=== PATIENT | female | born 1965 | race Two or more races ===

== ENCOUNTER 2019-09-03 07:55 | Day surgery (SDC) | payer BC ==
[2019-09-03 08:25] LABS: BASO % 0.9 % (0-2.0); EOS % 5.7 % (0-4.5); HEMATOCRIT 40.6 % (32.4-45.2); HEMOGLOBIN 13.6 GM/dL (10.7-15.3); LYMPH % 25.8 % (8-40); MCH 27.9 pg (25.7-33.7); MCHC 33.4 g/dl (32.0-36.0); MEAN CELL VOLUME 83.6 fl (80-96); MEAN PLT VOLUME 9.2 fl (7.5-11.1); NEUT % 59.6 % (42.8-82.8); PLATELET COUNT 171 K/MM3 (134-434); RBC 4.85 M/mm3 (3.60-5.2); RDW 14.3 % (11.6-15.6); WHITE BLOOD COUNT 6.2 K/mm3 (4.0-10.0)
[2019-09-03 08:39] LABS: INR 1.28 (0.83-1.09); PROTHROMBIN TIME (PATIENT) 15.2 SEC (9.7-13.0)
[2019-09-03 09:37] VITALS: BMI 43.7
[2019-09-03 14:15] VITALS: TEMP 98.5
[2019-09-03] MEDS ORDERED: ONDANSETRON 4 MG/2 ML VIAL IVPUSH ONE (15:34)
[2019-09-03 16:49] VITALS: BP 123/65; PULSE 74
--- NOTE | 2019-09-09 15:30 | PATH ---
Surgical Pathology Report Patient Name: NEVA SWENSON [facility]. Rec. #: [id number] /Age/Gender: 1965 (Age: 53) / F Account: [id number] Location: RADIOLOGY INTER Taken: 09/03/2019 Received: 09/03/2019 Reported: 09/09/2019 Physicians: Cole Ballard M.D. Specimen(s) Received LIVER CORE BIOPSY Clinical History Preop dx: h/o sarcoidosis and elevated LFT's, negative viral hepatitis A, B and C serologies, negative ADIEL, mitocho/Sm Musc. 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 MODERATE STEATOHEPATITIS WITH DIFFUSE STEATOSIS(70%), PERICELLULAR INFLAMMATION, AND FOCAL BALLOONING DEGENERATION OF HEPATOCYTES. IRON STAIN IS NEGATIVE FOR SIDEROSIS. PAS WITH DIASTASE STAIN IS NEGATIVE FOR [id number] GLOBULES. NEGATIVE FOR CHOLESTASIS, CHOLANGITIS/BILE DUCT INJURY, GRANULOMAS, OR MALIGNANCY. SEE COMMENT. Comment: The biopsy contains 18 portal tracts for evaluation and shows cirrhosis. The total SINYD score is 6/8 (steatosis:3/3, lobular inflammation: 2/3, hepatocyte balloonin/2). The SINDY fibrosis stage is 4/4. The patient is noted to have an elevated "mitochon/sm musc Ab titer". There is no evidence of autoimmune hepatitis or primary biliary cholangitis (PBC) in this sample. The alatna bile ducts are unremarkable. The cirrhosis is most likely due to steatohepatitis, however, a "burned out" immune-mediated process cannot be histologically excluded. The M2 subunit of anti-mitochondrial antibody is most specific for a diagnosis of PBC. Further testing for this may be helpful if a diagnosis of PBC is suspected. Furthermore, elevated autoantibodies have been reported in patients with fatty liver disease without autoimmune hepatitis. Shaina et al. Clinical Significance Of Serum Autoantibodies In Patients With NAFLD: Results From The Nonalcoholic Steatohepatitis Clinical Research Network(MARTINEZ CRN). Hepatol int. 2011; 6(1): 379-385. Tonya et al. Prevalence and Significance of Autoantibodies in Patients with Alcoholic Liver Disease. J Dig Dis. 2013 Trevon;14(7):396-401. Clinical and laboratory correlation recommended. This case was sent to Dr. Payal Palomino, GI and liver specialist, from [facility] [place], [place], the diagnosis above reflects her opinion ([id number]). Electronically Signed Madhavi Holguin M.D. Gross Description Received in formalin labeled "liver biopsy," are 3 estrada, cylindrical portions of soft tissue ranging from 1.4-1.8 cm in length and averaging 0.1 cm in diameter. The specimens are submitted in toto in one cassette. 09/03/2019 [facility]09/03/2019
== END 2019-09-03 16:30 | disposition home or self-care (01) ==
LOC: JRADIR 07:55
PROVIDERS: ATTEND Internal Medicine Gastroenterology
PROC: 0FB03ZX Excision of Liver, Percutaneous Approach, Diagnostic (ICD-10-PCS; principal; 2019-09-03)
DX: K75.81 Nonalcoholic steatohepatitis (NASH) (principal); K74.69 Other cirrhosis of liver
CPT/HCPCS: 36415; 76942-TC; 85025; 85610; 87899; 88305-TC; 88313-TC

== ENCOUNTER 2019-09-18 10:29 | Day surgery (SDC) | payer BC ==
[2019-09-17 08:03] VITALS: BMI 42.7
[2019-09-18] MEDS ORDERED: LIDOCAINE HCL 1%, 10 MG/ML (20ML VIAL) ONE (13:46)
[2019-09-18] MEDS ORDERED: LIDOCAINE 1%-EPI 1:100,000 30 ML MDV IJ ONE (13:46)
--- NOTE | 2019-09-18 13:52 | HP ---
History & Physical Update - History History: No Change (H & P done on 09/04/2019 with progress note on 09/11/2019) - Physical Physical: No Change - Assessment Assessment: No Change - Plan Plan: No Change
[2019-09-18] MEDS ORDERED: LIDOCAINE HCL/PF 2% SDV 5ML VIAL ONE (14:05)
[2019-09-18] MEDS ORDERED: PROPOFOL 20 ML ONE ×2 (14:06)
[2019-09-18] MEDS ORDERED: MIDAZOLAM HCL 2 MG/2 ML SINGLE DOSE VIAL ONE (14:06)
[2019-09-18] MEDS ORDERED: ceFAZolin SODIUM 1 GM VIAL ONE (14:27)
[2019-09-18] MEDS ORDERED: LIDOCAINE 1%/EPI 1:100000 (50 ML MULTI DOSE VIAL) NR ONE (14:35)
[2019-09-18] MEDS ORDERED: DEXAMETHASONE SOD PHOSPHATE 4 MG/1 ML VIAL ONE (14:38)
[2019-09-18] MEDS ORDERED: KETOROLAC TROMETHAMINE 30 MG/1 ML VIAL ONE (14:47)
--- NOTE | 2019-09-18 15:26 | OP ---
Operative Note - Note: Operative Date: 09/18/19 Pre-Operative Diagnosis: Stage 4 hemorrhoids Operation: EUA, stapled hemorrhoidectomy with PPH 3 Findings: PROLAPSED INTERNAL AND EXTERNAL HEMORRHOIDS Post-Operative Diagnosis: Same as Pre-op Surgeon: Juan A Davenport Anesthesia: General Specimens Removed: ANORECTAL TISSUE Estimated Blood Loss (mls): 15 Operative Report Dictated: Yes
[2019-09-18] MEDS ORDERED: ACETAMINOPHEN 500 MG TABLET (FP) PO PRN (15:29)
[2019-09-18] MEDS ORDERED: ONDANSETRON 4 MG/2 ML VIAL IVPUSH PRN (15:29)
[2019-09-18] MEDS ORDERED: oxyCODONE HCL 5 MG TABLET PO PRN (15:29)
[2019-09-18] MEDS ORDERED: LACTATED RINGERS SOLUTION 1,000 ML IV SCH (15:30)
[2019-09-18] MEDS ORDERED: ACETAMINOPHEN INJECTION 100 ML IVPB ONE (15:33)
[2019-09-18] MEDS ORDERED: ACETAMINOPHEN 1000 MG/100 ML VIAL (NON FORMULARY) IVPB ONE ×2 (15:37→18:16)
[2019-09-18] MEDS ORDERED: HYDROmorphone HCl 2 MG/ML VIAL IVPUSH PRN (16:53)
[2019-09-18] MEDS ORDERED: HYDROmorphone HCl 2 MG/ML VIAL ONE (17:28)
[2019-09-18] MEDS ORDERED: HYDROmorphone HCl 2 MG/ML VIAL IVPUSH ONE (17:43)
[2019-09-18 19:18] VITALS: TEMP 97.6
[2019-09-18 20:28] VITALS: BP 110/60; PULSE 80
--- NOTE | 2019-09-19 06:32 | OP ---
DATE OF OPERATION: 09/18/2019 PROCEDURE: Examination under anesthesia, stapled hemorrhoidectomy. PREOPERATIVE DIAGNOSIS: Stage 4 hemorrhoids. POSTOPERATIVE DIAGNOSIS: Stage 4 hemorrhoids. SURGEON: Juan A Davenport MD ANESTHESIA: General by laryngeal mask airway. FINDINGS AND PROCEDURE: This is a 53-year-old female who presented with acute prolapse of stage 4 hemorrhoids 3 weeks prior for which initial conservative treatment with sitz baths, analgesics, fiber laxatives, and lidocaine ointment was done. The edematous, prolapsed hemorrhoids eventually resolved; however, the prolapsed hemorrhoids persisted, so patient is advised hemorrhoidectomy, and consent was obtained after discussing the risks, benefits, and alternatives to the procedure. Patient was brought to the operating room and placed in supine position. General anesthesia by laryngeal mask airway was administered. Patient was then placed in lithotomy position. The perineum was prepped and draped in the usual sterile fashion. Using lidocaine 1% with epinephrine, perianal anesthesia was administered. The anal canal was then carefully inspected using the Linus anal retractor. No other abnormal lesion was found other than the prolapsed, 3-column hemorrhoids. Anal dilator was initially inserted and followed by insertion of the anoscope. The anoscope was anchored to the perineal skin with silk 0 sutures. Afterwards, the rotating anoscope was inserted, and a pursestring suture about 1 cm above the dentate line was applied using Prolene 2-0. After this, the anvil of the PPH3 was inserted beyond the pursestring, and the pursestring was tied. The PPH3 was then closed and fired and held for about 30 seconds for hemostasis. Afterwards, the PPH3 was opened and extracted from the anal canal. A 1.5-cm ring of anorectal tissue was harvested. The posterior vagina was also inspected and was noted to be intact. The staple line was inspected and noted to have just small oozing. A piece of Surgicel was inserted in the canal to reinforce the hemostasis. The anoscope was removed, and the perineum was covered with pressure dressing. Patient was successfully extubated and transferred to the post anesthesia care unit in satisfactory condition. Estimated blood loss was about 15 mL. Wound class, dirty. Patient received a gram of Ancef prior to the start of the procedure. JUAN A DAVENPORT M.D. [id number]
--- NOTE | 2019-09-23 19:35 | PATH ---
Surgical Pathology Report Patient Name: NEVA SWENSON Med. Rec. #: [id number] /Age/Gender: 1965 (Age: 53) / F Account: [id number] Location: [facility] SURGICAL Taken: 09/18/2019 Received: 09/21/2019 Reported: 09/23/2019 Physicians: uJan A Davenport M.D. Specimen(s) Received HEMORRHOIDS Clinical History Hemorrhoids Final Diagnosis HEMORRHOID, EXCISION: PORTION OF ANORECTAL JUNCTIONAL MUCOSA WITH HEMORRHOIDS. Electronically Signed Callie Perez M.D. Gross Description Received in formalin labeled "hemorrhoids," is a 4.5 x 2.0 x 1.2 cm estrada-brown portion of hemorrhagic mucosal tissue, consistent with hemorrhoids. Autocad sections are submitted in one cassette. DL/09/21/2019 saudi/09/21/2019
== END 2019-09-18 20:20 | disposition home or self-care (01) ==
LOC: JASU-SURG 10:29
PROVIDERS: ATTEND Surgery
PROC: 065Y0ZC Destruction of Hemorrhoidal Plexus, Open Approach (ICD-10-PCS; principal; 2019-09-18 12:10)
DX: K64.3 Fourth degree hemorrhoids (principal)
CPT/HCPCS: 88304-TC; 94760; J0131

== ENCOUNTER 2019-09-24 11:41 | Inpatient (IN) | payer BC ==
--- NOTE | 2019-09-24 12:16 | PDOC ---
History of Present Illness - General Chief Complaint: Pain Stated Complaint: RECTAL DISCOMFORT Time Seen by Provider: 09/24/19 12:15 History Source: Patient Exam Limitations: No Limitations - History of Present Illness Initial Comments: Derek Galo is a 54 yo F w a hx of recent hemmorhoidectomy surgery on 09/18, hepatosplenomegaly, HTN, and pulmonary sarcoidosis who presents to the [facility] er with severe rectal pain which has been present for the past 3 days. She states she is unable to sit on her bottom because she is in too much pain. She reports speaking with Dr. Davenport who advised to take a percocet for the pain and if the pain persisted to come into the er to be evaluated. She states the pain is relentless and will not subside so she came in to be evaluated. She has been using non-stop sitz baths which she sates is the only way she experiences any relief. She states ice and percocet have not helped very much. She was able to have a normal caliber bowel movement this morning with a tremendous amount of pain. She has been taking colace to soften her stools. She states she has multiple swollen and painful areas around her rectum which do not feel like hemorroids but feel much worse and are much more painful. She states she has been having diffuse chills and body aches for the past day. Denies fevers, nausea, vomiting, diarrhea, constipation, blood in her stool, chest pain, SOB, difficulty breathing PCP: Gayatri Bright Surgeon: Juan A Davenport Social Hx: Lives at home, independent in ADL, denies smoking, drinking, or other substance usage Allergies: NKA,NKDA PSH: hemmoroidectomy Past History - Past Medical History Allergies/Adverse Reactions: Allergies Allergy/AdvReac Type Severity Reaction Status Date / Time No Known Allergies Allergy Verified 09/24/19 11:50 Home Medications: Ambulatory Orders Hydrochlorothiazide [Hctz -] 25 mg PO HS 09/02/19 Metoprolol Tartrate 25 mg PO HS 09/02/19 Sennosides [Senna] 2 tab PO HS 09/17/19 Ibuprofen 800 mg PO Q6H PRN 09/24/19 Oxycodone HCl/Acetaminophen [Percocet 5-325 mg Tablet] 1 tab PO Q6H PRN Anemia: No Asthma: No Cancer: No Cardiac Disorders: No (cardiac cath-negative) CVA: No COPD: No CHF: No Dementia: No Diabetes: Yes (borderline) GI Disorders: No Disorders: No HTN: Yes Hypercholesterolemia: No Liver Disease: Yes (liver enlarged) Seizures: No Thyroid Disease: No - Psycho Social/Smoking Cessation Hx Smoking Status: No Smoking History: Unknown if ever smoked Have you smoked in the past 12 months: No Number of Cigarettes Smoked Daily: 0 Hx Alcohol Use: No Drug/Substance Use Hx: No Substance Use Type: None Hx Substance Use Treatment: No Review of Systems - Review of Systems Able to Perform ROS?: Yes Comments:: CONSTITUTIONAL: Present: Chills Absent: fever, no fatigue EYES: Absent: visual changes ENT: Absent: ear pain, no sore throat CARDIOVASCULAR: Absent: chest pain, no palpitations RESPIRATORY: Absent: cough, no SOB GI: Absent: abdominal pain, no nausea, no vomiting, no constipation, no diarrhea GENITOURINARY: Absent: dysuria, no frequency, no hematuria MUSKULOSKELETAL: Absent: back pain, no arthralgia, no myalgia SKIN: Absent: rash NEURO: Absent: headache *Physical Exam - Vital Signs Last Vital Signs Temp Pulse Resp BP Pulse Ox 98 F 117 H 20 127/86 99 09/24/19 11:47 09/24/19 11:47 09/24/19 11:47 09/24/19 11:47 09/24/19 11:47 - Physical Exam GENERAL: Well-appearing, well-nourished. Moderate distress. HEENT: Normocephalic, atraumatic. PERRL, EOM intact. CARDIOVASCULAR: Tachycardic rate. Normal S1, S2. Regular rhythm. PULMONARY: No evidence of respiratory distress. Lungs clear to auscultation bilaterally. No wheezing, rales or rhonchi. ABDOMEN: Soft, non-distended, non-tender. RECTAL: There is a large swollen, painful, erythematous, indurated and fluctuant region on the superior right aspect around 10 ocklock region surrounding the rectum. There are other small indurated and fluctuant painful regions around the rectum. There is overlying erythema and swelling. There is one open wound which is not actively draining pus in the 8 ocklock region. EXTREMITIES: Normal ROM in all four extremities. No gross deformities. SKIN: Warm, dry. No rash NEUROLOGICAL: No focal neurological deficits. ED Treatment Course - LABORATORY CBC & Chemistry Diagram: 09/24/19 12:48 09/24/19 12:48 Medical Decision Making - Medical Decision Making Derek Galo is a 54 yo F w a hx of recent hemmorhoidectomy surgery on 09/18, hepatosplenomegaly, HTN, and pulmonary sarcoidosis who presents to the [facility] er with severe rectal pain which has been present for the past 3 days. She states she is unable to sit on her bottom because she is in too much pain. She reports speaking with Dr. Davenport who advised to take a percocet for the pain and if the pain persisted to come into the er to be evaluated. She states the pain is relentless and will not subside so she came in to be evaluated. She has been using non-stop sitz baths which she sates is the only way she experiences any relief. She states ice and percocet have not helped very much. She was able to have a normal caliber bowel movement this morning with a tremendous amount of pain. She has been taking colace to soften her stools. She states she has multiple swollen and painful areas around her rectum which do not feel like hemorroids but feel much worse and are much more painful. She states she has been having diffuse chills and body aches for the past day. Vital Signs Temp Pulse Resp BP Pulse Ox 98 F 117 H 20 127/86 99 09/24/19 11:47 09/24/19 11:47 09/24/19 11:47 09/24/19 11:47 09/24/19 11:47 DDx IBNLT: Perirectal vs britni-anal abscess, sepsis, electrolyte/metabolic disturbance, anemia Plan: Labs, Pelvis CT, analgesia, +/- Abx, Surgical consult/referall, re-assess Labs: Unremarkable - Pre-op labs ordered Pelvis CT: Britni-rectal abscess Surgical Consult: Dr. Davenport is on vacation - Dr. Vasquez is covering for Dr. Davenport. Plan is to admit patent to hospital because she is septic, cover with Abx, and consult Dr. Vasquez who will perform surgery on the patient. - NPO - IV hydration Re-assessment: Patient informed on findings and need for admission to drain rectal abscess Disposition: Med/Surg Discharge - Discharge Information Problems reviewed: Yes Clinical Impression/Diagnosis: Britni-rectal abscess Sepsis Qualifiers: Sepsis type: sepsis due to unspecified organism Sepsis acute organ dysfunction status: unspecified Qualified Code(s): A41.9 - Sepsis, unspecified organism Condition: Stable - Admission Yes - Follow up/Referral Referrals: Gayatri Bright MD [Primary Care Provider] - - Patient Discharge Instructions - Post Discharge Activity
[2019-09-24] MEDS ORDERED: morphine CARPU-JECT 4 MG/1 ML DISP.SYRIN IVPUSH ONE (12:39)
[2019-09-24] MEDS ORDERED: morphine SULFATE 4 MG/ML VIAL ONE (13:01)
[2019-09-24 13:21] LABS: BASO % 0.4 % (0-2.0); EOS % 2.6 % (0-4.5); HEMATOCRIT 41.4 % (32.4-45.2); HEMOGLOBIN 13.8 GM/dL (10.7-15.3); LYMPH % 16.6 % (8-40); MCH 27.6 pg (25.7-33.7); MCHC 33.3 g/dl (32.0-36.0); MEAN CELL VOLUME 82.9 fl (80-96); MEAN PLT VOLUME 8.8 fl (7.5-11.1); MONO % 9.4 % (3.8-10.2); PLATELET COUNT 231 K/MM3 (134-434); RBC 4.99 M/mm3 (3.60-5.2); RDW 14.5 % (11.6-15.6); WHITE BLOOD COUNT 8.4 K/mm3 (4.0-10.0)
[2019-09-24 13:40] LABS: INR 1.35 (0.83-1.09)
[2019-09-24 13:42] LABS: ACTIVATED PTT 32.3 SECONDS (25.2-36.5)
[2019-09-24 13:49] LABS: ALBUMIN 3.2 g/dl (3.4-5.0); BILIRUBIN,TOTAL 0.8 mg/dL (0.2-1); CALCIUM 8.9 mg/dL (8.5-10.1); CREATININE 0.7 mg/dL (0.55-1.3); POTASSIUM 3.7 mmol/L (3.5-5.1); TOT PROT 7.9 g/dl (6.4-8.2)
--- NOTE | 2019-09-24 13:53 | PDOC ---
Documentation entered by Nico Alejo SCRIBE, acting as scribe for Sandee Urban MD. Sandee Urban MD: This documentation has been prepared by the Melo hernandez Nirvannie, SCRIBE, under my direction and personally reviewed by me in its entirety. I confirm that the documentation accurately reflects all work, treatment, procedures, and medical decision making performed by me. Attending Attestation - Resident Resident Name: Obey Cruz - ED Attending Attestation I have performed the following: I have examined & evaluated the patient, The case was reviewed & discussed with the resident, I agree w/resident's findings & plan, Exceptions are as noted - HPI HPI: 09/24/19 13:44 The patient is a year old female, with a significant past medical history of hepatosplenomegaly, HTN, and pulmonary sarcoidosis, and recent , who presents to the emergency department with 3 days of persistent rectal pain. She notes the inability to be seated secondary to rectal discomfort. Patient notes speaking to Dr. Davenport in regards to her pain at which time she was advised to take Percocet for her pain and report to the ED for new or worsening symptoms. She denies recent dysuria, frequency, urgency or hematuria. She denies recent chest pain or shortness of breath. Allergies: NKDA Past surgical history: hemorrhoidectomy Social history: Nonsmoker. Denies EtOH use and recreational drug use. Primary Care Physician: Dr. Gayatri Bright Surgeon: Dr. Juan A Davenport - Physicial Exam PE: 09/24/19 13:44 GENERAL: +Uncomfortably appearing. Awake, alert, and fully oriented, in no acute distress ABDOMEN: Soft, nontender, normoactive bowel sounds. No guarding, no rebound. No masses RECTAL: +3 fluctuant masses in the proximal anal verge that is exquisitely tender. - Medical Decision Making 09/24/19 13:51 Pt presents to the ED complaining of severe rectal pain after hemorrhiodectomy. Exam is consistent with rectal abscess. Will check labs and CT pelvis to evaluate for cori rectal abscess. Will give pain control and likely admit. Will consult Dr. Davenport.
[2019-09-24] MEDS ORDERED: VANCOMYCIN 1,000 MG in DEXTROSE 5%-WATER - 250 ML IVPB ONE ×2 (16:08→19:56)
[2019-09-24] MEDS ORDERED: PIPERACILLIN/TAZOB 4.5 GM 4.5 GM in DEXTROSE 5%-WATER 100 ML IVPB ONE (16:08)
[2019-09-24] MEDS ORDERED: LACTATED RINGERS SOLUTION 1,000 ML/1,000 ML INFUS.BAG IV SCH (16:15)
[2019-09-24] MEDS ORDERED: VANCOMYCIN 1 GRAM (PRE-DOCKED) 1,000 MG/250 ML BAG IVPB ONE (16:36)
[2019-09-24] MEDS ORDERED: PIPERACILLIN/TAZOB 4.5 GM 4.5 GM/100 ML BAG IVPB ONE (16:36)
[2019-09-24] MEDS ORDERED: LIDOCAINE HCL 1%, 10 MG/ML (20ML VIAL) ONE (16:44)
[2019-09-24] MEDS ORDERED: MIDAZOLAM HCL 2 MG/2 ML SINGLE DOSE VIAL ONE (17:29)
--- NOTE | 2019-09-24 18:08 | HP ---
CHIEF COMPLAINT: rectal pain PCP: Dr. Bright HISTORY OF PRESENT ILLNESS: 52 y/o/f with PMHx of hepatosplenomegaly, HTN, pulmonary sarcoidosis (no active medication) who presents to the ED due to rectal pain since her hemorrhoidectomy on 09/[address] Davenport. Patient has had worsening rectal pain for the last 3 days. She states it is difficult for her to walk and sit due to pain. She has taken percocets and sitz bath without improvement. She had a bowel movement this morning which she states was hard and painful. She did not notice any blood in her stool. She has been taking fiber supplements to soften her stool. She complains of chills and persistent rectal pain. She denies nausea , vomiting, chest pain, SOB, abd pain, headache, fever, dysuria, changes in vision. ER course was notable for: (1) Surgery consulted - Dr. Vasquez - patient to go to OR (2) CT pelvis - subcutaneous abscess posterior to the rectum just to the right of the midline. 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 [place] Allergies No Known Allergies Allergy (Verified 09/24/19 11:50) HOME MEDICATIONS: Home Medications Medication Instructions Recorded Hydrochlorothiazide [Hctz -] 25 mg PO HS 09/02/19 Metoprolol Tartrate 25 mg PO HS 09/02/19 Sennosides [Senna] 2 tab PO HS 09/17/19 Ibuprofen 800 mg PO Q6H PRN 09/24/19 Oxycodone HCl/Acetaminophen 1 tab PO Q6H PRN 09/24/19 [Percocet 5-325 mg Tablet] REVIEW OF SYSTEMS as per HPI PHYSICAL EXAMINATION Vital Signs - 24 hr 09/24/19 09/24/19 11:47 17:20 Temperature 98 F 98.7 F Pulse Rate 117 H Pulse Rate [ 94 H Left Radial] Respiratory 20 18 Rate Blood Pressure 127/86 Blood Pressure 115/48 L [Right Arm] O2 Sat by Pulse 99 99 Oximetry (%) GENERAL: Awake, alert, and fully oriented, mild distress secondary to pain HEAD: Normal with no signs of trauma. EYES: EOMI, no scleral icterus EARS, NOSE, THROAT: MMM NECK: Normal range of motion, supple without lymphadenopathy, JVD, or masses. LUNGS: Breath sounds equal, clear to auscultation bilaterally. No wheezes, and no crackles. No accessory muscle use. HEART: tachycardic, no murmur noted ABDOMEN: obese, Soft, nontender, not distended RECTAL: multiple indurations felt over right buttock close to midline, severe tenderness to palpation over cori-rectal area on the right, there is a small 1x1cm circular erythematous ulcerative lesion in the right cori-rectal area without active bleeding or purulent drainage. unable to do rectal exam due to severe pain MUSCULOSKELETAL: No bony deformities or tenderness. No CVA tenderness. EXTREMITIES: 2+ pulses, warm, well-perfused. No calf tenderness. No peripheral edema. NEUROLOGICAL: Normal speech. gait not observed PSYCHIATRIC: Cooperative. Good eye contact. Appropriate mood and affect. SKIN: Warm, dry, normal turgor, no rashes or lesions noted, normal capillary refill. Laboratory Results - last 24 hr 09/24/19 09/24/19 09/24/19 12:42 12:48 12:48 WBC 8.4 RBC 4.99 Hgb 13.8 Hct 41.4 MCV 82.9 MCH 27.6 MCHC 33.3 RDW 14.5 Plt Count 231 D MPV 8.8 Absolute Neuts (auto) 6.0 Neutrophils % 71.0 Lymphocytes % 16.6 D Monocytes % 9.4 Eosinophils % 2.6 Basophils % 0.4 Nucleated RBC % 0 PT with INR INR PTT (Actin FS) Sodium 140 Potassium 3.7 Chloride 104 Carbon Dioxide 30 Anion Gap 7 L BUN 9.0 Creatinine 0.7 Est GFR (CKD-EPI)AfAm 113.84 Est GFR (CKD-EPI)NonAf 98.23 Random Glucose 112 H Lactic Acid 1.2 Calcium 8.9 Total Bilirubin 0.8 AST 29 ALT 27 Alkaline Phosphatase 70 Total Protein 7.9 Albumin 3.2 L 09/24/19 12:48 WBC RBC Hgb Hct MCV MCH MCHC RDW Plt Count MPV Absolute Neuts (auto) Neutrophils % Lymphocytes % Monocytes % Eosinophils % Basophils % Nucleated RBC % PT with INR 16.00 H INR 1.35 H PTT (Actin FS) 32.3 Sodium Potassium Chloride Carbon Dioxide Anion Gap BUN Creatinine Est GFR (CKD-EPI)AfAm Est GFR (CKD-EPI)NonAf Random Glucose Lactic Acid Calcium Total Bilirubin AST ALT Alkaline Phosphatase Total Protein Albumin ASSESSMENT/PLAN: 52 y/o/f with PMHx of hepatosplenomegaly, HTN, pulmonary sarcoidosis (no active medication) who presents to the ED due to rectal pain since her hemoroidectomy on 09/[address] Davenport. #Cori-rectal abscess - likely 2/2 to hemorrhoidectomy on 09/18 - Started on Vanc, Zosyn in ED - Continue vanco 1g daily, Zosyn 3.375 IV Q8H - surgery consulted (Dr. Vasquez) - patient going to OR for I&D - patient tachycardic, no leukocytosis, afebrile. monitor - pain medication as per Surgery, avoid NSAIDs - aggressive bowel regimen to soften stool - Colace, Senna, Miralax ordered - F/U blood cultures, wound cultures - pain medication as per surgery #HTN - Continue home Metoprolol 25mg HS, HCTZ 25mg HS #Pulmonary sarcoidosis - no active medications #Prophylaxis - SCDs - holding chemical AC as per surgery #FEN - NS @100mls/hr - sodium controlled diet - monitor and replete lytes as needed #Disposition - Patient going to OR for procedure - admitted to med/surg Visit type - Emergency Visit Emergency Visit: Yes ED Registration Date: 09/24/19 Care time: The patient presented to the Emergency Department on the above date and was hospitalized for further evaluation of their emergent condition. - New Patient This patient is new to me today: Yes Date on this admission: 09/25/19 - Critical Care Critical Care patient: No ATTENDING PHYSICIAN STATEMENT I saw and evaluated the patient. I reviewed the resident's note and discussed the case with the resident. I agree with the resident's findings and plan as documented. SUBJECTIVE: OBJECTIVE: ASSESSMENT AND PLAN:
[2019-09-24] MEDS ORDERED: oxyCODONE HCL 5 MG TABLET PO PRN (18:11)
[2019-09-24] MEDS ORDERED: ONDANSETRON 4 MG/2 ML VIAL IVPUSH PRN ×2 (18:11→19:56)
[2019-09-24] MEDS ORDERED: LACTATED RINGERS SOLUTION 1,000 ML IV SCH ×2 (18:15→19:56)
[2019-09-24] MEDS ORDERED: SODIUM CHLORIDE 1,000 ML IV SCH (18:15)
[2019-09-24] MEDS ORDERED: VANCOMYCIN 1 GM in D5W (PRE-DOCKED) 1,000 MG/250 ML IVPB ONE (18:15)
--- NOTE | 2019-09-24 18:41 | OP ---
Operative Note - Note: Operative Date: 09/24/19 Pre-Operative Diagnosis: post hemorrhoidectomy abscess Operation: exam under anesthesia and incision and draiange of post hemorrhoidectomy abscess Findings: subcutaneous anscess posterior to and to the right of the midline of the anus; post op hemorrhoidectomy changes; vaginal wall and rectum intact. Post-Operative Diagnosis: Same as Pre-op Surgeon: Felipe Vasquez Anesthesiologist/MUTUEL MACHINE OPERATOR: Sharon Hummel Anesthesia: Spinal Specimens Removed: none Estimated Blood Loss (mls): 5 Drains & Tubes with Location: judith and packing
--- NOTE | 2019-09-24 19:30 | PN ---
Teaching Attending Note Name of Resident: Mine Grider ATTENDING PHYSICIAN STATEMENT I saw and evaluated the patient. I reviewed the resident's note and discussed the case with the resident. I agree with the resident's findings and plan as documented. SUBJECTIVE: Patient is a 52 year old woman with a PMH of Hepatosplenomegaly, HTN and Pulmonary sarcoidosis (not on medication) who presents to the ER due to rectal pain since her hemorrhoidectomy on 09/18/[address] Davenport. Patient has had worsening rectal pain for the last 3 days. She states it is difficult for her to walk and sit due to pain. She has taken Percocet and Sitz bath without improvement. She had a bowel movement this morning which she states was hard and painful. She did not notice any blood in her stool. She has been taking fiber supplements to soften her stool. She complains of chills and persistent rectal pain. She denies nausea, vomiting, chest pain, SOB, abdominal pain, headache, fever, diarrhea, dysuria, frequency or urgency. Denies alcohol, tobacco or illicit drug use. No sick contacts or recent travels. CT scan of abdomen/pelvis revealed a subcutaneous abscess posterior to the rectum. Patient was evaluated by surgery and taken to the OR for incision and drainage. OBJECTIVE: Alert Vital Signs Period Temp Pulse Resp BP Sys/Ward Pulse Ox Last 24 Hr 98 F-98.9 F 71-117 10-20 110-131/48-86 97-99 HEENT: No Jaundice, eye redness or discharge, PERRLA, EOMI. Normocephalic, atraumatic. External ears are normal and hearing is grossly intact. No nasal discharge. Neck: Supple, nontender. No palpable adenopathy or thyromegaly. No JVD Chest: Good effort. Clear to auscultation and percussion. Heart: Regular. No S3, rub or murmur Abdomen: Not distended, soft, nontender and no HSM. No rebound or guarding. Normal bowel sounds. Ext: Peripheral pulses intact. No leg edema. Perirectal abcsess drainage site packed and dressed with [place] drain in place. Skin: Warm and dry. No petechiae, rash or ecchymosis. Neuro: Alert. Oriented x3. CN 2-12 grossly intact. Sensation grossly intact in all four extremities and DTR are symmetric. Psych: Appropriate mood and affect. Good insight. Current Medications Generic Name Dose Route Start Last Admin Trade Name Freq PRN Reason Stop Dose Admin Docusate Sodium 200 mg 09/25/19 10:00 Colace - PO DAILY [facility] Fentanyl 50 mcg 09/24/19 18:11 Sublimaze Injection - IVPUSH [id number] PRN PAIN-PACU ORDER X 4 DOSES ONLY Hydrochlorothiazide 25 mg 09/24/19 22:00 Hctz - PO HS [facility] Sodium Chloride 1,000 mls @ 100 mls/hr 09/24/19 18:15 Normal Saline - IV ASDIR JOSEFINA Lactated Ringer's 1,000 mls @ 125 mls/hr 09/24/19 18:15 Lactated Ringers Solution IV ASDIR JOSEFINA Piperacillin Sod/Tazobactam 50 mls @ 100 mls/hr 09/25/19 02:00 Sod 3.375 gm/ Dextrose IVPB Q8H-IV JOSEFINA Protocol Piperacillin Sod/Tazobactam 50 mls @ 100 mls/hr 09/25/19 02:00 Sod 3.375 gm/ Dextrose IVPB 09/25/19 18:29 Q8H-IV [facility] Protocol Metoprolol Tartrate 25 mg 09/24/19 22:00 Lopressor - PO HS [facility] Ondansetron HCl 4 mg 09/24/19 18:11 Zofran Injection IVPUSH Q6H PRN NAUSEA AND/OR VOMITING Oxycodone HCl 10 mg 09/24/19 18:11 Roxicodone - PO 09/25/19 18:10 Q4H PRN PAIN LEVEL 6-10 Polyethylene Glycol 17 gm 09/24/19 18:44 Miralax (For Daily Use) - PO DAILY PRN CONSTIPATION Senna 1 tab 09/24/19 22:00 Senna - PO BID [facility] Vancomycin HCl 1,000 mg 09/25/19 10:00 Vancomycin (Pre-Docked) IVPB DAILY [facility] Protocol Vancomycin HCl 1,000 mg 09/25/19 18:00 Vancomycin (Pre-Docked) IVPB 09/25/19 18:01 ONCE ONE Protocol Home Medications Medication Instructions Recorded Hydrochlorothiazide [Hctz -] 25 mg PO HS 09/02/19 Metoprolol Tartrate 25 mg PO HS 09/02/19 Abnormal Lab Results 09/24/19 09/24/19 12:48 12:48 PT with INR 16.00 H INR 1.35 H Anion Gap 7 L Random Glucose 112 H Albumin 3.2 L ASSESSMENT AND PLAN: 1. Perirectal abcess/Postop Day 0 - CT scan of abdomen/pelvis revealed a subcutaneous abscess posterior to the rectum. Patient was evaluated by surgery and taken to the OR where incision and drainage was done under spinal anaesthesia. She was started on IV Vancomycin and Zosyn in the ER. Will continue same antibiotics pending results of sepsis workup and abscess sample sent for culture. Monitor daily drainage from the [place] drain. Will use Oxycodone for pain control and provide a bowel regimen. EKG, CXR and UA pending. Will continue comprehensive care for all of patients comorbid conditions. 2. Hypoalbuminemia - Possibly due to combined effects of malnutrition and inflammation associated with comorbid chronic conditions. Will ensure adequate dietary protein intake and also consult boat operator. Will get urinalysis. 3. Morbid obesity Counseled on the risks associated with morbid obesity. Will provide patient all the necessary assistance, counseling and positive reinforcement to facilitate weight loss. Consult boat operator. 4. Hypertension - Restart suitable outpatient antihypertensive drugs when clinically appropriate. Revise regimen to ensure [id number] excellent BP control and director counseling bureau patient on the injurious effects of uncontrolled hypertension. Nonpharmacologic measures to control hypertension like weight loss , salt restriction and exercise discussed. Importance of adherence to treatment regimen and attainment of normotension emphasized. 5. DVT prophylaxis - Lovenox 40 mg SQ q 12 hours. 6. Advance directives - Full code
[2019-09-24] MEDS: oxyCODONE HCL 5 MG TABLET PO PRN (20:39)
[2019-09-24] MEDS: POLYETHYLENE GLYCOL 3350 119 GM BTL PO PRN (21:02)
[2019-09-24] MEDS: PSYLLIUM 5.85 GM PACKET PO SCH (21:03)
[2019-09-24] MEDS: SENNOSIDES 8.6MG TABLET (FP) PO SCH (21:03)
[2019-09-24] MEDS: DOCUSATE SODIUM 100 MG CAPSULE (FP) PO SCH (21:03)
[2019-09-24] MEDS: HYDROCHLOROTHIAZIDE 25 MG TABLET (FP) PO SCH (21:49)
[2019-09-24] MEDS: METOPROLOL TARTRATE 25 MG TABLET (FP) PO SCH (21:49)
[2019-09-24 21:59] VITALS: BMI 44.5
[2019-09-24] MEDS ORDERED: METOPROLOL TARTRATE 25 MG TABLET (FP) PO SCH ×2 (22:00)
[2019-09-24] MEDS ORDERED: HYDROCHLOROTHIAZIDE 25 MG TABLET (FP) PO SCH ×2 (22:00)
[2019-09-25] MEDS: oxyCODONE HCL 5 MG TABLET PO PRN ×2 (00:18→05:58)
[2019-09-25] MEDS ORDERED: PIPERACILLIN/TAZOBACTAM 3.375 GM VIAL IVPB ONE ×2 (01:18→09:32)
[2019-09-25] MEDS ORDERED: DEXTROSE 5%-WATER - 50 ML IVPB ONE ×3 (01:19→15:25)
[2019-09-25] MEDS: PIPERACILLIN/TAZOB 3.375 GM 3.375 GM in DEXTROSE 5%-WATER - 50 ML IVPB SCH ×2 (01:25→09:36)
[2019-09-25] MEDS ORDERED: PIPERACILLIN/TAZOB 3.375 GM 3.375 GM in DEXTROSE 5%-WATER - 50 ML IVPB SCH (02:00)
[2019-09-25] MEDS ORDERED: MORPHINE SULFATE 2 MG/ML VIAL IVPUSH ONE (02:17)
[2019-09-25] MEDS: DOCUSATE SODIUM 100 MG CAPSULE (FP) PO SCH ×4 (05:58→21:53)
[2019-09-25 08:37] LABS: HEMATOCRIT 36.4 % (32.4-45.2); HEMOGLOBIN 12.2 GM/dL (10.7-15.3); MCH 27.9 pg (25.7-33.7); MCHC 33.7 g/dl (32.0-36.0); MEAN CELL VOLUME 82.9 fl (80-96); MEAN PLT VOLUME 8.7 fl (7.5-11.1); PLATELET COUNT 170 K/MM3 (134-434); RBC 4.38 M/mm3 (3.60-5.2); RDW 14.7 % (11.6-15.6); WHITE BLOOD COUNT 7.1 K/mm3 (4.0-10.0)
[2019-09-25 09:03] LABS: ALBUMIN 2.8 g/dl (3.4-5.0); BILIRUBIN,TOTAL 0.9 mg/dL (0.2-1); BLOOD UREA NITROGEN 8.4 mg/dL (7-18); CALCIUM 8.2 mg/dL (8.5-10.1); CREATININE 0.7 mg/dL (0.55-1.3); POTASSIUM 3.7 mmol/L (3.5-5.1); TOT PROT 6.8 g/dl (6.4-8.2)
[2019-09-25] MEDS ORDERED: PT OWN MED DRAWER 7, Y5N ONE ×2 (09:32→21:11)
[2019-09-25] MEDS: POLYETHYLENE GLYCOL 3350 119 GM BTL PO PRN (09:35)
[2019-09-25] MEDS: SENNOSIDES 8.6MG TABLET (FP) PO SCH ×2 (09:37→21:54)
[2019-09-25] MEDS ORDERED: VANCOMYCIN 1 GM in D5W (PRE-DOCKED) 1,000 MG/250 ML IVPB SCH (10:00)
--- NOTE | 2019-09-25 10:03 | PN ---
Progress Note (short form) - Note Progress Note: Post op day#1.S/p I&D of perirectal abscess under spinal anesthesia uneventful.Patient stable.No any anesthesia related problem.Patient DC from the anesthesia care.
--- NOTE | 2019-09-25 10:26 | CONSULT ---
- Consultation REQUESTING PROVIDER: ED MD CONSULT REQUEST: We have been asked to surgically evaluate this patient for rectal pain PCP:Fredi Fernando MD HISTORY OF PRESENT ILLNESS: 54 y/o female s/p hemorrhoidectomy 09/18/2019 presented w/ pain and swelling near her anus/rectum not responsive to the narcotic pain medication she is taking; she zayra bleeding; c/o constipation and pain sitting and w/defectaion; she saw her surgeon 2 days ago and now presents to the ED. PMHx: HTN PSHx: hemorrhoidectomy Home Medications Medication Instructions Recorded Hydrochlorothiazide [Hctz -] 25 mg PO HS 09/02/19 Metoprolol Tartrate 25 mg PO HS 09/02/19 Allergies Allergy/AdvReac Type Severity Reaction Status Date / Time No Known Allergies Allergy Verified 09/24/19 11:50 REVIEW OF SYSTEMS: CONSTITUTIONAL: Absent: fever, chills, diaphoresis, generalized weakness, malaise, loss of appetite, weight change CARDIOVASCULAR: Absent: chest pain, syncope, palpitations, irregular heart rate, lightheadedness , peripheral edema RESPIRATORY: Absent: cough, shortness of breath, dyspnea with exertion, wheezing, stridor, hemoptysis GASTROINTESTINAL: Absent: abdominal pain, abdominal distension, nausea, vomiting, diarrhea, constipation, melena, hematochezia Present; rectal bleeding and pain. GENITOURINARY: Absent: dysuria, frequency, urgency, hesitancy, hematuria, flank pain, genital pain MUSCULOSKELETAL: Absent: myalgia, arthralgia, joint swelling, back pain, neck pain SKIN: Absent: rash, itching, pallor HEMATOLOGIC/IMMUNOLOGIC: Absent: easy bleeding, easy bruising, lymphadenopathy NEUROLOGIC: Absent: headache, focal weakness, paresthesias, dizziness, unsteady gait, seizure, mental status changes, bladder or bowel incontinence PSYCHIATRIC: Absent: anxiety, depression, suicidal or homicidal ideation, hallucinations. PHYSICAL EXAM: GENERAL: Awake, alert, and fully oriented, in no acute distress. HEAD: Normal with no signs of trauma. EYES: PERRL, sclera anicteric, conjunctiva clear. NECK: Normal ROM, supple without lymphadenopathy, JVD, or masses. ABDOMEN: Soft, nontender, not distended, normoactive bowel sounds, no guarding, no rebound, no masses. No organomegaly. MUSCULOSKELETAL: Normal ROM at all joints. No bony deformities or tenderness. No CVA tenderness. UPPER EXTREMITIES: 2+ pulses, warm, well-perfused. No cyanosis. Cap refill <2 seconds. No peripheral edema. LOWER EXTREMITIES: 2+ pulses, warm, well-perfused. No calf tenderness. No peripheral edema. NEUROLOGICAL: Normal speech, gait not observed. PSYCH: Cooperative. Good eye contact. Appropriate mood and affect. SKIN: Warm, dry, normal turgor, no rashes or lesions noted. RECTAL: GST; no mass; bulging ttp soft tissue mass to the right of the rectum and slightly posterior; overlying skin is erythematous. Vital Signs Temperature 97.8 F 09/25/19 07:23 Pulse Rate 84 09/25/19 07:23 Respiratory Rate 15 09/25/19 07:23 Blood Pressure 124/66 09/25/19 07:23 O2 Sat by Pulse Oximetry (%) 98 09/24/19 22:03 Lab Results WBC 7.1 K/mm3 (4.0-10.0) 09/25/19 07:44 RBC 4.38 M/mm3 (3.60-5.2) 09/25/19 07:44 Hgb 12.2 GM/dL (10.7-15.3) 09/25/19 07:44 Hct 36.4 % (32.4-45.2) 09/25/19 07:44 MCV 82.9 fl (80-96) 09/25/19 07:44 MCHC 33.7 g/dl (32.0-36.0) 09/25/19 07:44 RDW 14.7 % (11.6-15.6) 09/25/19 07:44 Plt Count 170 K/MM3 (134-434) D 09/25/19 07:44 Sodium 137 mmol/L (136-145) 09/25/19 07:44 Potassium 3.7 mmol/L (3.5-5.1) 09/25/19 07:44 Chloride 102 mmol/L (98-107) 09/25/19 07:44 Carbon Dioxide 28 mmol/L (21-32) 09/25/19 07:44 Anion Gap 7 MMOL/L (8-16) L 09/25/19 07:44 BUN 8.4 mg/dL (7-18) 09/25/19 07:44 Creatinine 0.7 mg/dL (0.55-1.3) 09/25/19 07:44 Random Glucose 113 mg/dL (74-106) H 09/25/19 07:44 Calcium 8.2 mg/dL (8.5-10.1) L 09/25/19 07:44 INR 1.35 (0.83-1.09) H 09/24/19 12:48 CT scan a/p reviewed IMP: post perirectal abscess PLAN: For EUA/ I and D under anesthesia; r/b/t/a's d/w the patient and her son and informed consent obtained Felipe Vasquez MD FACS
[2019-09-25] MEDS: PSYLLIUM 5.85 GM PACKET PO SCH ×2 (12:58→21:54)
[2019-09-25] MEDS ORDERED: ONDANSETRON 4 MG/2 ML VIAL IVPUSH ONE (13:11)
--- NOTE | 2019-09-25 14:14 | PN ---
Physical Exam: SUBJECTIVE: Patient seen and examined. Patient was unable to void last night and had a straight cath x1. This morning still complains of some difficulty urinating but later told by nurse that she was able to void. Still complains of some pain but improved compared to prior. OBJECTIVE: Vital Signs Period Temp Pulse Resp BP Sys/Ward Pulse Ox Last 24 Hr 97.8 F-99.3 F 70-94 10-20 107-131/48-78 97-99 GENERAL: Awake, alert, and fully oriented, mild distress secondary to pain HEAD: Normal with no signs of trauma. EYES: EOMI, no scleral icterus EARS, NOSE, THROAT: MMM NECK: Normal range of motion, supple without lymphadenopathy, JVD, or masses. LUNGS: Breath sounds equal, clear to auscultation bilaterally. No wheezes, and no crackles. No accessory muscle use. HEART: RRR, no murmur noted ABDOMEN: obese, Soft, nontender, not distended RECTAL: multiple indurations felt over right buttock close to midline, tenderness to palpation over right buttocks. Dressing in place with judith and packing. MUSCULOSKELETAL: No bony deformities or tenderness. No CVA tenderness. EXTREMITIES: 2+ pulses, warm, well-perfused. No calf tenderness. No peripheral edema. NEUROLOGICAL: Normal speech. gait not observed PSYCHIATRIC: Cooperative. Good eye contact. Appropriate mood and affect. SKIN: Warm, dry, normal turgor Laboratory Results - last 24 hr 09/24/19 09/24/19 09/24/19 10:33 12:42 12:48 WBC 8.4 RBC 4.99 Hgb 13.8 Hct 41.4 MCV 82.9 MCH 27.6 MCHC 33.3 RDW 14.5 Plt Count 231 D MPV 8.8 Absolute Neuts (auto) 6.0 Neutrophils % 71.0 Lymphocytes % 16.6 D Monocytes % 9.4 Eosinophils % 2.6 Basophils % 0.4 Nucleated RBC % 0 PT with INR INR PTT (Actin FS) Sodium Potassium Chloride Carbon Dioxide Anion Gap BUN Creatinine Est GFR (CKD-EPI)AfAm Est GFR (CKD-EPI)NonAf Random Glucose Lactic Acid 1.2 Calcium Magnesium Total Bilirubin AST ALT Alkaline Phosphatase Total Protein Albumin Blood Type O POSITIVE Antibody Screen Negative 09/24/19 09/24/19 09/25/19 12:48 12:48 07:44 WBC 7.1 RBC 4.38 Hgb 12.2 Hct 36.4 MCV 82.9 MCH 27.9 MCHC 33.7 RDW 14.7 Plt Count 170 D MPV 8.7 Absolute Neuts (auto) Neutrophils % Lymphocytes % Monocytes % Eosinophils % Basophils % Nucleated RBC % PT with INR 16.00 H INR 1.35 H PTT (Actin FS) 32.3 Sodium 140 Potassium 3.7 Chloride 104 Carbon Dioxide 30 Anion Gap 7 L BUN 9.0 Creatinine 0.7 Est GFR (CKD-EPI)AfAm 113.84 Est GFR (CKD-EPI)NonAf 98.23 Random Glucose 112 H Lactic Acid Calcium 8.9 Magnesium Total Bilirubin 0.8 AST 29 ALT 27 Alkaline Phosphatase 70 Total Protein 7.9 Albumin 3.2 L Blood Type Antibody Screen 09/25/19 07:44 WBC RBC Hgb Hct MCV MCH MCHC RDW Plt Count MPV Absolute Neuts (auto) Neutrophils % Lymphocytes % Monocytes % Eosinophils % Basophils % Nucleated RBC % PT with INR INR PTT (Actin FS) Sodium 137 Potassium 3.7 Chloride 102 Carbon Dioxide 28 Anion Gap 7 L BUN 8.4 Creatinine 0.7 Est GFR (CKD-EPI)AfAm 113.84 Est GFR (CKD-EPI)NonAf 98.23 Random Glucose 113 H Lactic Acid Calcium 8.2 L Magnesium 2.0 Total Bilirubin 0.9 AST 25 ALT 22 Alkaline Phosphatase 61 Total Protein 6.8 Albumin 2.8 L Blood Type Antibody Screen Active Medications Generic Name Dose Route Start Last Admin Trade Name Freq PRN Reason Stop Dose Admin Docusate Sodium 200 mg 09/25/19 10:00 09/25/19 09:37 Colace - PO 200 mg DAILY [facility] Administration Docusate Sodium 100 mg 09/24/19 22:00 09/25/19 13:25 Colace - PO Not Given TID JOSEFINA Hydrochlorothiazide 25 mg 09/24/19 22:00 09/24/19 21:49 Hctz - PO Not Given HS JOSEFINA Piperacillin Sod/Tazobactam 50 mls @ 100 mls/hr 09/25/19 02:00 Sod 3.375 gm/ Dextrose IVPB Q8H-IV JOSEFINA Protocol Piperacillin Sod/Tazobactam 50 mls @ 100 mls/hr 09/25/19 02:00 09/25/19 09:36 Sod 3.375 gm/ Dextrose IVPB 09/25/19 18:29 100 mls/hr Q8H-IV JOSEFINA Administration Protocol Lactated Ringer's 1,000 mls @ 125 mls/hr 09/24/19 19:56 09/24/19 20:49 Lactated Ringers Solution IV 125 mls/hr ASDIR JOSEFINA Administration Metoprolol Tartrate 25 mg 09/24/19 22:00 09/24/19 21:49 Lopressor - PO Not Given HS JOSEFINA Oxycodone HCl 10 mg 09/24/19 19:56 09/25/19 05:58 Roxicodone - PO 09/25/19 18:10 10 mg Q4H PRN Administration PAIN LEVEL 6-10 Polyethylene Glycol 17 gm 09/24/19 18:44 09/25/19 09:35 Miralax (For Daily Use) - PO 17 grams DAILY PRN Administration CONSTIPATION Psyllium Hydrophilic Mucilloid 5.85 gm 09/24/19 22:00 09/25/19 12:58 Metamucil (Sugar-Free) - PO Not Given BID JOSEFINA Senna 1 tab 09/24/19 22:00 09/25/19 09:37 Senna - PO 1 tab BID JOSEFINA Administration Vancomycin HCl 1,000 mg 09/25/19 18:00 Vancomycin (Pre-Docked) IVPB 09/25/19 18:01 ONCE ONE Protocol Vancomycin HCl 1,000 mg 09/25/19 10:00 Vancomycin (Pre-Docked) IVPB BID JOSEFINA Protocol ASSESSMENT/PLAN: 52 y/o/f with PMHx of hepatosplenomegaly, HTN, pulmonary sarcoidosis (no active medication) who presents to the ED due to rectal pain since her hemoroidectomy on 09/[address] Davenport. #Britni-rectal abscess - likely 2/2 to hemorrhoidectomy on 09/18 - Started on Vanc, Zosyn in ED - Continue vanco 1g BID, Zosyn 3.375 IV Q8H - ID consulted (Dr. Villegas) - surgery consulted (Dr. Vasquez) - POD#1 I&D with judith and packing - no leukocytosis, afebrile. monitor - Roxicodone 10mg Q4H PRN for pain - aggressive bowel regimen to soften stool - Colace, Senna, Miralax ordered - F/U blood cultures, wound cultures #HTN - Continue home Metoprolol 25mg HS, HCTZ 25mg HS #Pulmonary sarcoidosis - no active medications #Prophylaxis - SCDs - Heparin #FEN - LR @75mls/hr, can D/C fluids as patient tolerates PO more - sodium controlled diet - monitor and replete lytes as needed #Disposition - F/u cultures, patient will likely need wound care services on discharge Visit type - Emergency Visit Emergency Visit: Yes ED Registration Date: 09/24/19 Care time: The patient presented to the Emergency Department on the above date and was hospitalized for further evaluation of their emergent condition. - New Patient This patient is new to me today: No - Critical Care Critical Care patient: No ATTENDING PHYSICIAN STATEMENT I saw and evaluated the patient. I reviewed the resident's note and discussed the case with the resident. I agree with the resident's findings and plan as documented. SUBJECTIVE: OBJECTIVE: ASSESSMENT AND PLAN:
--- NOTE | 2019-09-25 14:36 | PN ---
Progress Note (short form) - Note Progress Note: ID consult dictated 54 yo female no history DM, s/p OR 09/18 for hemorrhoidectomy- no fevers, readmitted with rectal pain 09/24 ct scan with subcutaneous abscess, taken to OR yesterday s/p drainage of abscess no recent antibiotics no history of surgery no fevers rocephin/clindamycin- no concerns for MDRO would like to cover MRSA- post op infection and GNR/anaerobes add probiotics f/u cultures Problem List - Problems (1) Britni-rectal abscess Code(s): K61.1 - RECTAL ABSCESS (2) S/P hemorrhoidectomy Code(s): Z98.890 - OTHER SPECIFIED POSTPROCEDURAL STATES; Z87.19 - PERSONAL HISTORY OF OTHER DISEASES OF THE DIGESTIVE SYSTEM
--- NOTE | 2019-09-25 14:55 | EKG ---
Test Reason : Blood Pressure : / mmHG Vent. Rate : 082 BPM Atrial Rate : 082 BPM P-R Int : 168 ms QRS Dur : 080 ms QT Int : 372 ms P-R-T Axes : 030 -03 016 degrees QTc Int : 434 ms NORMAL SINUS RHYTHM NORMAL ECG WHEN COMPARED WITH ECG OF 24-SEP-2019 13:32, NO SIGNIFICANT CHANGE WAS FOUND Confirmed by MICHAELA HEIN MD ([id number]) on 09/25/2019 2:54:36 PM Referred By: KT CARR DR Confirmed By:MICHAELA HEIN MD
[2019-09-25] MEDS: LACTATED RINGERS SOLUTION 1,000 ML IV SCH (15:22)
--- NOTE | 2019-09-25 15:23 | EKG ---
Test Reason : Blood Pressure : / mmHG Vent. Rate : 070 BPM Atrial Rate : 070 BPM P-R Int : 150 ms QRS Dur : 078 ms QT Int : 392 ms P-R-T Axes : 032 008 017 degrees QTc Int : 423 ms POOR DATA QUALITY, INTERPRETATION MAY BE ADVERSELY AFFECTED NORMAL SINUS RHYTHM CANNOT RULE OUT ANTERIOR INFARCT , AGE UNDETERMINED ABNORMAL ECG WHEN COMPARED WITH ECG OF 19-SEP-2008 07:08, NO SIGNIFICANT CHANGE WAS FOUND Confirmed by MICHAELA HEIN MD ([id number]) on 09/25/2019 3:23:05 PM Referred By: Confirmed By:MICHAELA HEIN MD
--- NOTE | 2019-09-25 15:24 | PN ---
Teaching Attending Note Name of Resident: Mine Grider ATTENDING PHYSICIAN STATEMENT I saw and evaluated the patient. I reviewed the resident's note and discussed the case with the resident. I agree with the resident's findings and plan as documented. SUBJECTIVE: Complains of ongoing L buttock pain s/p I and D. Poor appetite. No nausea/vomiting. OBJECTIVE: Afebrile, Hemodynamically Stable. Last Vital Signs Temp Pulse Resp BP Pulse Ox 98.4 F 99 H 14 136/77 98 09/25/19 14:50 09/25/19 14:50 09/25/19 12:34 09/25/19 14:50 09/25/19 09:00 HEENT - Atraumatic, Normocephalic. Heart - S1, S2, RRR Lungs - clear to auscultation Abdomen - Soft, non-tender. Bowel Sounds normal. Extremities - no edema, no calf tenderness. Laboratory Results - last 24 hr 09/24/19 09/25/19 09/25/19 10:33 07:44 07:44 WBC 7.1 RBC 4.38 Hgb 12.2 Hct 36.4 MCV 82.9 MCH 27.9 MCHC 33.7 RDW 14.7 Plt Count 170 D MPV 8.7 Sodium 137 Potassium 3.7 Chloride 102 Carbon Dioxide 28 Anion Gap 7 L BUN 8.4 Creatinine 0.7 Est GFR (CKD-EPI)AfAm 113.84 Est GFR (CKD-EPI)NonAf 98.23 Random Glucose 113 H Calcium 8.2 L Magnesium 2.0 Total Bilirubin 0.9 AST 25 ALT 22 Alkaline Phosphatase 61 Total Protein 6.8 Albumin 2.8 L Blood Type O POSITIVE Antibody Screen Negative Current Medications Generic Name Dose Route Start Last Admin Trade Name Freq PRN Reason Stop Dose Admin Docusate Sodium 200 mg 09/25/19 10:00 09/25/19 09:37 Colace - PO 200 mg DAILY JOSEFINA Administration Docusate Sodium 100 mg 09/24/19 22:00 09/25/19 13:25 Colace - PO Not Given TID JOSEFINA Hydrochlorothiazide 25 mg 09/24/19 22:00 09/24/19 21:49 Hctz - PO Not Given HS JOSEFINA Lactated Ringer's 1,000 mls @ 75 mls/hr 09/25/19 14:29 09/25/19 15:22 Lactated Ringers Solution IV 75 mls/hr ASDIR JOSEFINA Administration Ceftriaxone Sodium 1 gm/ 50 mls @ 200 mls/hr 09/25/19 14:45 09/25/19 15:26 Dextrose IVPB 200 mls/hr DAILY JOSEFINA Administration Protocol Clindamycin Phosphate 600 mg in 50 mls @ 100 mls/hr 09/25/19 18:00 Cleocin 600 Mg Premix Ivpb - IVPB Q8H-IV JOSEFINA Protocol Lactobacillus Acidophilus 1 tab 09/25/19 15:00 09/25/19 15:26 Bacid - PO 1 tab DAILY JOSEFINA Administration Metoprolol Tartrate 25 mg 09/24/19 22:00 09/24/19 21:49 Lopressor - PO Not Given HS [facility] Oxycodone HCl 10 mg 09/24/19 19:56 09/25/19 05:58 Roxicodone - PO 09/25/19 18:10 10 mg Q4H PRN Administration PAIN LEVEL 6-10 Polyethylene Glycol 17 gm 09/24/19 18:44 09/25/19 09:35 Miralax (For Daily Use) - PO 17 grams DAILY PRN Administration CONSTIPATION Psyllium Hydrophilic Mucilloid 5.85 gm 09/24/19 22:00 09/25/19 12:58 Metamucil (Sugar-Free) - PO Not Given BID JOSEFINA Senna 1 tab 09/24/19 22:00 09/25/19 09:37 Senna - PO 1 tab BID JOSEFINA Administration Vancomycin HCl 1,000 mg 09/25/19 18:00 Vancomycin (Pre-Docked) IVPB 09/25/19 18:01 ONCE ONE Protocol Home Medications Medication Instructions Recorded Hydrochlorothiazide [Hctz -] 25 mg PO HS 09/02/19 Metoprolol Tartrate 25 mg PO HS 09/02/19 ASSESSMENT/PLAN 52 year old female with history of HTN, Hepatosplenomegaly, Pulmonary Sarcoid, presents with 3 day history of rectal pain s/p Hemorrhoidectomy 09/18. CT pelvis - subcutaneous abscess posterior to the rectum just to the right of the midline. collection measures approximately 2.2x1.9x3.3cm 1. Acute cori-rectal abscess No fistula/bowel communication on CT Afebrile, hemodynamically Stable. POD 1 s/p EUA/I&D by Surgery Initially placed on Zosyn/Vanco, de-escalated to Rocephin/Clinda by ID Wound/Surgical Cx pending. Wound Care, bowel regimen 2. HTN - continue Metoprolol, HCTZ 3. Pulmonary Sarcoid - not on treatment. Pul,monary follow up as out-patient. DVT Px - Heparin SQ
[2019-09-25] MEDS ORDERED: cefTRIAXone SODIUM 1 GM VIAL ONE (15:25)
[2019-09-25] MEDS: CEFTRIAXONE 1 GM in DEXTROSE 5%-WATER - 50 ML IVPB SCH (15:26)
[2019-09-25] MEDS: LACTOBACILLUS ACIDOPHILUS 1 TABLET PO SCH (15:26)
--- NOTE | 2019-09-25 16:08 | CONS ---
INFECTIOUS DISEASE CONSULTATION DATE OF CONSULTATION: DATE OF DICTATION: 09/25/2019 HISTORY: This is a 54-year-old woman. She has a history of hypertension. She recently on the had an exam under anesthesia with hemorrhoidectomy for stage 4 hemorrhoids. She was discharged home. She did not take any antibiotics. On the , she returned to the ER complaining of rectal pain for the last 3 days. She had been taking Percocet and sitz baths without improvement. She had a bowel movement on the that was hard and painful. She denies any fevers or chills. She was evaluated in the ER and found to have a subcutaneous abscess posterior to the rectum just to the right of the midline. It was 2.2 x 1.9 x 3.3 cm. She was taken to the OR for drainage, and the operative findings were subcutaneous abscess posterior to and to the right of the midline, postop hemorrhoidectomy changes. Vaginal wall and rectum intact. She has been given vancomycin and Zosyn perioperatively, and I am asked to see her. PAST MEDICAL HISTORY: Notable for history of hypertension. She has also had a liver biopsy apparently for a history of hepatosplenomegaly. Her PCP is with Gina. Notable for pulmonary sarcoid for which she takes no medicines. She has 7 children who are all vaginal deliveries. She did not have any complications during or at delivery with any of her children. SURGICAL HISTORY: Notable for the hemorrhoidectomy done on September 18. SOCIAL HISTORY: There is no history of cigarette, alcohol, or substance use. She originally from [place]. She has been in this country for 30 years. She is . 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 ALLERGIES: No known drug allergies. MEDICATIONS: Include the recent Percocet and senna as well as ibuprofen, metoprolol, hydrochlorothiazide. REVIEW OF SYSTEMS: She has had no nausea, vomiting, diarrhea, or dysuria. PHYSICAL EXAMINATION: General: She is awake and alert. She is resting comfortably. Vital Signs: Temperature is 98.4, pulse of 99, blood pressure 136/77, respiratory rate is 14. She is saturating 98% on room air. HEENT: She is normocephalic. Her eyes are anicteric. Neck: Supple. Lungs: Clear to auscultation. Abdomen: Soft, nontender. Extremities: Without edema. She has a perioperative dressing over the site of the surgery on her back. It is yet to be changed by the surgeon. DIAGNOSTIC DATA: Her white count is 7.1, hemoglobin 12.2, platelets 170, BUN 8.4, creatinine 0.7. LFTs are normal. Blood cultures are negative. Cultures from the surgery are pending at this time. In summary, this is a 54-year-old woman with: 1. Hypertension, otherwise healthy, admitted with a subcutaneous abscess status post a hemorrhoidectomy on the . We will treat her with ceftriaxone and clindamycin at this time. Would like her to have some MRSA coverage since she just had surgery and this is a subcutaneous abscess. As well, would like her to have some gram-negative and anaerobic coverage, so this combination should be adequate. Cultures are pending in the morning and at that time can be further evaluated. 2. History of hypertension. KORY DURAN M.D. [id number]
[2019-09-25] MEDS ORDERED: morphine SULFATE 4 MG/ML VIAL IVPUSH ONE (17:15)
--- NOTE | 2019-09-25 17:18 | PN ---
Progress Note (short form) - Note Progress Note: Surgeon Attending POD#1 was doing K since this AM; no w/more pain; dressing was reinforced by RN after large BM; tolerating diet VSS AF wound-open w/ Ty in place w/no drainage; there is a new are of spontaneous drainage more posterior in the perineum now actively draining w/ttp; o/w negative IMP; improved PLAN: dressing changed and area of new spontaneous drainage probed w/purulent d /c; wound redressed; cont present tx. will start sitz baths tomorrow. Felipe Vasquez MD FACS
[2019-09-25] MEDS: CLINDAMYCIN 600MG PREMIX IVPB 600 MG/50 ML BAG IVPB SCH (17:33)
[2019-09-25] MEDS ORDERED: VANCOMYCIN 1 GM in D5W (PRE-DOCKED) 1,000 MG/250 ML IVPB ONE (18:00)
[2019-09-25] MEDS: HEPARIN NA (PORCINE) 5,000 UNITS/ML 1ML VIAL SQ SCH (21:53)
[2019-09-25] MEDS: HYDROCHLOROTHIAZIDE 25 MG TABLET (FP) PO SCH (21:53)
[2019-09-25] MEDS: METOPROLOL TARTRATE 25 MG TABLET (FP) PO SCH (21:53)
[2019-09-26] MEDS: CLINDAMYCIN 600MG PREMIX IVPB 600 MG/50 ML BAG IVPB SCH ×3 (02:32→17:31)
[2019-09-26] MEDS: LACTATED RINGERS SOLUTION 1,000 ML IV SCH ×2 (03:40→14:41)
[2019-09-26] MEDS: DOCUSATE SODIUM 100 MG CAPSULE (FP) PO SCH ×4 (06:27→21:32)
[2019-09-26] MEDS: HEPARIN NA (PORCINE) 5,000 UNITS/ML 1ML VIAL SQ SCH ×3 (06:32→21:33)
[2019-09-26] MEDS ORDERED: DEXTROSE 5%-WATER - 50 ML IVPB ONE (09:54)
[2019-09-26] MEDS ORDERED: cefTRIAXone SODIUM 1 GM VIAL ONE (09:54)
[2019-09-26] MEDS: CEFTRIAXONE 1 GM in DEXTROSE 5%-WATER - 50 ML IVPB SCH (10:05)
[2019-09-26] MEDS: LACTOBACILLUS ACIDOPHILUS 1 TABLET PO SCH (10:06)
[2019-09-26] MEDS: SENNOSIDES 8.6MG TABLET (FP) PO SCH ×2 (10:06→21:32)
[2019-09-26] MEDS: PSYLLIUM 5.85 GM PACKET PO SCH ×2 (10:07→21:32)
--- NOTE | 2019-09-26 12:25 | PN ---
Teaching Attending Note Name of Resident: Jose Jensen ATTENDING PHYSICIAN STATEMENT I saw and evaluated the patient. I reviewed the resident's note and discussed the case with the resident. I agree with the resident's findings and plan as documented. SUBJECTIVE: Improving L buttock pain s/p I and D. Poor appetite. No nausea/ vomiting. No abdominal pain. BM x 2. OBJECTIVE: Afebrile, Hemodynamically Stable. Last Vital Signs Temp Pulse Resp BP Pulse Ox 98.2 F 93 H 20 110/79 98 09/26/19 10:00 09/26/19 10:09/26/19 10:09/26/19 10:09/25/19 09:00 Heart - S1, S2, RRR Lungs - clear to auscultation Abdomen - Soft, non-tender. Bowel Sounds normal. Extremities - no edema, no calf tenderness. L cori-rectal abscess packed s/p I and D with second draining sinus posterior to I and D site. No surrounding erythema. Current Medications Generic Name Dose Route Start Last Admin Trade Name Violetta PRN Reason Stop Dose Admin Docusate Sodium 200 mg 09/25/19 10:09/26/19 10:06 Colace - PO 200 mg DAILY JOSEFINA Administration Docusate Sodium 100 mg 09/24/19 22:00 09/26/19 06:27 Colace - PO Not Given TID JOSEFINA Heparin Sodium (Porcine) 5,000 unit 09/25/19 22:00 09/26/19 06:32 Heparin - SQ 5,000 unit TID JOSEFINA Administration Hydrochlorothiazide 25 mg 09/24/19 22:00 09/25/19 21:53 Hctz - PO 25 mg HS JOSEFINA Administration Lactated Ringer's 1,000 mls @ 75 mls/hr 09/25/19 14:29 09/26/19 03:40 Lactated Ringers Solution IV 75 mls/hr ASDIR JOSEFINA Administration Ceftriaxone Sodium 1 gm/ 50 mls @ 200 mls/hr 09/25/19 14:45 09/26/19 10:05 Dextrose IVPB 200 mls/hr DAILY JOSEFINA Administration Protocol Clindamycin Phosphate 600 mg in 50 mls @ 100 mls/hr 09/25/19 18:00 09/26/19 10:03 Cleocin 600 Mg Premix Ivpb - IVPB 100 mls/hr Q8H-IV JOSEFINA Administration Protocol Lactobacillus Acidophilus 1 tab 09/25/19 15:00 09/26/19 10:06 Bacid - PO 1 tab DAILY JOSEFINA Administration Metoprolol Tartrate 25 mg 09/24/19 22:00 09/25/19 21:53 Lopressor - PO 25 mg HS JOSEFINA Administration Polyethylene Glycol 17 gm 09/24/19 18:44 09/25/19 09:35 Miralax (For Daily Use) - PO 17 grams DAILY PRN Administration CONSTIPATION Psyllium Hydrophilic Mucilloid 5.85 gm 09/24/19 22:00 09/26/19 10:07 Metamucil (Sugar-Free) - PO Not Given BID JOSEFINA Senna 1 tab 09/24/19 22:00 09/26/19 10:06 Senna - PO 1 tab BID JOSEFINA Administration Home Medications Medication Instructions Recorded Hydrochlorothiazide [Hctz -] 25 mg PO HS 09/02/19 Metoprolol Tartrate 25 mg PO HS 09/02/19 ASSESSMENT/PLAN 52 year old female with history of HTN, Hepatosplenomegaly, Pulmonary Sarcoid, presents with 3 day history of rectal pain s/p Hemorrhoidectomy 09/18. CT pelvis - subcutaneous abscess posterior to the rectum just to the right of the midline. collection measures approximately 2.2x1.9x3.3cm 1. Acute cori-rectal abscess POD 2 s/p EUA/I&D by Surgery No fistula/bowel communication on CT Afebrile, hemodynamically Stable. Initially placed on Zosyn/Vanco, de-escalated to Rocephin/Clinda by ID Wound/Surgical Cx LFNB, final ID and Sens pending. Wound Care, bowel regimen 2. HTN - continue Metoprolol, HCTZ 3. Pulmonary Sarcoid - not on treatment. Pulmonary follow up as out-patient. DVT Px - Heparin SQ
--- NOTE | 2019-09-26 12:40 | PN ---
Physical Exam: SUBJECTIVE: Patient seen and examined. Pain has improved. Spoke with son regarding plan, but they would like to speak with surgery team regarding their plan. OBJECTIVE: Vital Signs Period Temp Pulse Resp BP Sys/Ward Pulse Ox Last 24 Hr 98.2 F-98.7 F 79-99 20-20 106-136/58-79 GENERAL: The patient is awake, alert, and fully oriented, in no acute distress. NECK: Trachea midline, full range of motion, supple. LUNGS: Breath sounds equal, clear to auscultation bilaterally, no wheezes, no crackles, no accessory muscle use. HEART: Regular rate and rhythm, S1, S2 without murmur, rub or gallop. ABDOMEN: Soft, nontender, nondistended, normoactive bowel sounds EXTREMITIES: 2+ pulses, warm, well-perfused, no edema. SKIN: Warm, dry, no rashes or lesions noted, Active Medications Generic Name Dose Route Start Last Admin Trade Name Freq PRN Reason Stop Dose Admin Docusate Sodium 200 mg 09/25/19 10:00 09/26/19 10:06 Colace - PO 200 mg DAILY JOSEFINA Administration Docusate Sodium 100 mg 09/24/19 22:00 09/26/19 06:27 Colace - PO Not Given TID JOSEFINA Heparin Sodium (Porcine) 5,000 unit 09/25/19 22:00 09/26/19 06:32 Heparin - SQ 5,000 unit TID JOSEFINA Administration Hydrochlorothiazide 25 mg 09/24/19 22:00 09/25/19 21:53 Hctz - PO 25 mg HS JOSEFINA Administration Lactated Ringer's 1,000 mls @ 75 mls/hr 09/25/19 14:29 09/26/19 03:40 Lactated Ringers Solution IV 75 mls/hr ASDIR JOSEFINA Administration Ceftriaxone Sodium 1 gm/ 50 mls @ 200 mls/hr 09/25/19 14:45 09/26/19 10:05 Dextrose IVPB 200 mls/hr DAILY JOSEFINA Administration Protocol Clindamycin Phosphate 600 mg in 50 mls @ 100 mls/hr 09/25/19 18:00 09/26/19 10:03 Cleocin 600 Mg Premix Ivpb - IVPB 100 mls/hr Q8H-IV JOSEFINA Administration Protocol Lactobacillus Acidophilus 1 tab 09/25/19 15:00 09/26/19 10:06 Bacid - PO 1 tab DAILY JOSEFINA Administration Metoprolol Tartrate 25 mg 09/24/19 22:00 09/25/19 21:53 Lopressor - PO 25 mg HS JOSEFINA Administration Polyethylene Glycol 17 gm 09/24/19 18:44 09/25/19 09:35 Miralax (For Daily Use) - PO 17 grams DAILY PRN Administration CONSTIPATION Psyllium Hydrophilic Mucilloid 5.85 gm 09/24/19 22:00 09/26/19 10:07 Metamucil (Sugar-Free) - PO Not Given BID JOSEFINA Senna 1 tab 09/24/19 22:00 09/26/19 10:06 Senna - PO 1 tab BID JOSEFINA Administration ASSESSMENT/PLAN: 52 y/o/f with PMHx of hepatosplenomegaly, HTN, pulmonary sarcoidosis (no active medication) who presents to the ED due to rectal pain since her hemoroidectomy on 09/[address] Davenport. #Britni-rectal abscess - likely 2/2 to hemorrhoidectomy on 09/18 - descalated abx to clinda and ceftriaxone - ID consulted (Dr. Villegas) - surgery consulted (Dr. Vasquez) - POD#2 I&D with judith and packing - no leukocytosis, afebrile. monitor - Roxicodone 10mg Q4H PRN for pain - aggressive bowel regimen to soften stool - Colace, Senna, Miralax ordered - F/U blood cultures, wound cultures #HTN - Continue home Metoprolol 25mg HS, HCTZ 25mg HS #Pulmonary sarcoidosis - no active medications #Prophylaxis - SCDs - Heparin #FEN - LR @75mls/hr, can D/C fluids as patient tolerates PO more - sodium controlled diet - monitor and replete lytes as needed #Disposition - F/u cultures, patient will likely need wound care services on discharge Visit type - Emergency Visit Emergency Visit: Yes ED Registration Date: 09/24/19 Care time: The patient presented to the Emergency Department on the above date and was hospitalized for further evaluation of their emergent condition. - New Patient This patient is new to me today: Yes Date on this admission: 09/26/19 - Critical Care Critical Care patient: No - Discharge Referral Referred to [facility] Med [facility] No ATTENDING PHYSICIAN STATEMENT I saw and evaluated the patient. I reviewed the resident's note and discussed the case with the resident. I agree with the resident's findings and plan as documented. SUBJECTIVE: OBJECTIVE: ASSESSMENT AND PLAN:
--- NOTE | 2019-09-26 13:25 | PN ---
Progress Note (short form) - Note Progress Note: Attending Surgeon POD#2 Feels better; less pain VSS AF wound-Ty out both areas markedly improved preliminary G/s results noticed IMP: i,proved PLAN: BID sitz baths and continue present tx. Felipe Vasquez MD FACS
[2019-09-26] MEDS: HYDROCHLOROTHIAZIDE 25 MG TABLET (FP) PO SCH (21:33)
[2019-09-26] MEDS: METOPROLOL TARTRATE 25 MG TABLET (FP) PO SCH (21:33)
[2019-09-27] MEDS: CLINDAMYCIN 600MG PREMIX IVPB 600 MG/50 ML BAG IVPB SCH ×3 (01:33→18:00)
[2019-09-27] MEDS: LACTATED RINGERS SOLUTION 1,000 ML IV SCH ×2 (01:33→18:00)
[2019-09-27] MEDS: HEPARIN NA (PORCINE) 5,000 UNITS/ML 1ML VIAL SQ SCH ×3 (05:27→21:36)
[2019-09-27] MEDS: DOCUSATE SODIUM 100 MG CAPSULE (FP) PO SCH ×4 (05:27→21:37)
[2019-09-27 08:38] LABS: BASO % 0.4 % (0-2.0); EOS % 5.3 % (0-4.5); HEMATOCRIT 36.2 % (32.4-45.2); HEMOGLOBIN 12.3 GM/dL (10.7-15.3); LYMPH % 19.4 % (8-40); MEAN CELL VOLUME 82.3 fl (80-96); MEAN PLT VOLUME 8.8 fl (7.5-11.1); MONO % 10.8 % (3.8-10.2); NEUT % 64.1 % (42.8-82.8); PLATELET COUNT 173 K/MM3 (134-434); RDW 14.2 % (11.6-15.6); WHITE BLOOD COUNT 6.1 K/mm3 (4.0-10.0)
[2019-09-27 09:10] LABS: ALBUMIN 2.9 g/dl (3.4-5.0); BILIRUBIN,TOTAL 0.5 mg/dL (0.2-1); BLOOD UREA NITROGEN 7.5 mg/dL (7-18); CALCIUM 8.6 mg/dL (8.5-10.1); CREATININE 0.7 mg/dL (0.55-1.3); POTASSIUM 3.6 mmol/L (3.5-5.1); TOT PROT 7.4 g/dl (6.4-8.2)
[2019-09-27] MEDS ORDERED: PT OWN MED DRAWER 7, Y5N ONE ×2 (10:11→21:32)
[2019-09-27] MEDS ORDERED: cefTRIAXone SODIUM 1 GM VIAL ONE (10:12)
[2019-09-27] MEDS ORDERED: DEXTROSE 5%-WATER - 50 ML IVPB ONE (10:12)
[2019-09-27] MEDS: LACTOBACILLUS ACIDOPHILUS 1 TABLET PO SCH (10:14)
[2019-09-27] MEDS: SENNOSIDES 8.6MG TABLET (FP) PO SCH ×2 (10:14→21:36)
[2019-09-27] MEDS: CEFTRIAXONE 1 GM in DEXTROSE 5%-WATER - 50 ML IVPB SCH (10:15)
[2019-09-27] MEDS: PSYLLIUM 5.85 GM PACKET PO SCH ×2 (10:16→21:37)
--- NOTE | 2019-09-27 14:12 | PN ---
Progress Note (short form) - Note Progress Note: SUBJECTIVE: Improving L buttock pain s/p I and D. Appetite improving. No nausea/ vomiting. No abdominal pain. BMs successful. OBJECTIVE: Afebrile, Hemodynamically Stable. Last Vital Signs Temp Pulse Resp BP Pulse Ox 98.0 F 69 20 110/58 L 97 09/27/19 05:43 09/27/19 05:43 09/27/19 05:43 09/27/19 05:43 09/26/19 09:00 Heart - S1, S2, RRR Lungs - clear to auscultation Abdomen - Soft, non-tender. Bowel Sounds normal. Extremities - no edema, no calf tenderness. L cori-rectal abscess packed s/p I and D with second draining sinus posterior to I and D site. No surrounding erythema. Laboratory Results - last 24 hr 09/27/19 09/27/19 07:29 07:29 WBC 6.1 RBC 4.40 Hgb 12.3 Hct 36.2 MCV 82.3 MCH 28.0 MCHC 34.0 RDW 14.2 Plt Count 173 MPV 8.8 Absolute Neuts (auto) 3.9 Neutrophils % 64.1 Lymphocytes % 19.4 Monocytes % 10.8 H Eosinophils % 5.3 H D Basophils % 0.4 Nucleated RBC % 0 Sodium 138 Potassium 3.6 Chloride 104 Carbon Dioxide 28 Anion Gap 6 L BUN 7.5 Creatinine 0.7 Est GFR (CKD-EPI)AfAm 113.84 Est GFR (CKD-EPI)NonAf 98.23 Random Glucose 104 Calcium 8.6 Total Bilirubin 0.5 AST 26 ALT 23 Alkaline Phosphatase 64 Total Protein 7.4 Albumin 2.9 L Current Medications Generic Name Dose Route Start Last Admin Trade Name Freq PRN Reason Stop Dose Admin Docusate Sodium 200 mg 09/25/19 10:00 09/27/19 10:14 Colace - PO 200 mg DAILY JOSEFINA Administration Docusate Sodium 100 mg 09/24/19 22:00 09/27/19 05:27 Colace - PO Not Given TID JOSEFINA Heparin Sodium (Porcine) 5,000 unit 09/25/19 22:00 09/27/19 05:27 Heparin - SQ 5,000 unit TID JOSEFINA Administration Hydrochlorothiazide 25 mg 09/24/19 22:00 09/26/19 21:33 Hctz - PO 25 mg HS JOSEFINA Administration Lactated Ringer's 1,000 mls @ 75 mls/hr 09/25/19 14:29 09/27/19 01:33 Lactated Ringers Solution IV 75 mls/hr ASDIR JOSEFINA Administration Ceftriaxone Sodium 1 gm/ 50 mls @ 200 mls/hr 09/25/19 14:45 09/27/19 10:15 Dextrose IVPB 200 mls/hr DAILY JOSEFINA Administration Protocol Clindamycin Phosphate 600 mg in 50 mls @ 100 mls/hr 09/25/19 18:00 09/27/19 10:14 Cleocin 600 Mg Premix Ivpb - IVPB 100 mls/hr Q8H-IV JOSEFINA Administration Protocol Lactobacillus Acidophilus 1 tab 09/25/19 15:00 09/27/19 10:14 Bacid - PO 1 tab DAILY JOSEFINA Administration Metoprolol Tartrate 25 mg 09/24/19 22:00 09/26/19 21:33 Lopressor - PO 25 mg HS JOSEFINA Administration Polyethylene Glycol 17 gm 09/24/19 18:44 09/25/19 09:35 Miralax (For Daily Use) - PO 17 grams DAILY PRN Administration CONSTIPATION Psyllium Hydrophilic Mucilloid 5.85 gm 09/24/19 22:00 09/27/19 10:16 Metamucil (Sugar-Free) - PO 5.85 gm BID JOSEFINA Administration Senna 1 tab 09/24/19 22:00 09/27/19 10:14 Senna - PO 1 tab BID JOSEFINA Administration Home Medications Medication Instructions Recorded Hydrochlorothiazide [Hctz -] 25 mg PO HS 09/02/19 Metoprolol Tartrate 25 mg PO HS 09/02/19 ASSESSMENT/PLAN 52 year old female with history of HTN, Hepatosplenomegaly, Pulmonary Sarcoid, presents with 3 day history of rectal pain s/p Hemorrhoidectomy 09/18. CT pelvis - subcutaneous abscess posterior to the rectum just to the right of the midline. collection measures approximately 2.2x1.9x3.3cm 1. Acute cori-rectal abscess POD 3 s/p EUA/I&D by Surgery No fistula/bowel communication on CT Afebrile, hemodynamically Stable. Initially placed on Zosyn/Vanco, de-escalated to Rocephin/Clinda by ID Wound/Surgical Cx pos for Ecoli/Strep agalaciae. Further Abx titration as per ID. Wound Care, bowel regimen, Sitz bath BID. Further management as per Surgery. 2. HTN - continue Metoprolol, HCTZ 3. Pulmonary Sarcoid - not on treatment. Pulmonary follow up as out-patient. DVT Px - Heparin SQ Visit type - Emergency Visit Emergency Visit: Yes ED Registration Date: 09/24/19 Care time: The patient presented to the Emergency Department on the above date and was hospitalized for further evaluation of their emergent condition. - New Patient This patient is new to me today: No - Critical Care Critical Care patient: No - Discharge Referral Referred to [facility] Med [facility] No
[2019-09-27] MEDS: METOPROLOL TARTRATE 25 MG TABLET (FP) PO SCH (21:36)
[2019-09-27] MEDS: HYDROCHLOROTHIAZIDE 25 MG TABLET (FP) PO SCH (21:36)
[2019-09-28] MEDS: CLINDAMYCIN 600MG PREMIX IVPB 600 MG/50 ML BAG IVPB SCH ×2 (01:40→10:23)
[2019-09-28] MEDS: DOCUSATE SODIUM 100 MG CAPSULE (FP) PO SCH ×4 (06:02→21:40)
[2019-09-28] MEDS: HEPARIN NA (PORCINE) 5,000 UNITS/ML 1ML VIAL SQ SCH ×3 (06:02→21:39)
--- NOTE | 2019-09-28 07:44 | PN ---
Progress Note (short form) - Note Progress Note: surgery POD #3 Patient seen and examined at bedside. She is moving her bowels but still has an area adjacent to the two incisions that is still painful. She is OOb, tolerating her diet and denies any CP, sob, N/V, fever or chills. Vital Signs Temp 98 F 09/28/19 05:02 Pulse 73 09/28/19 05:02 Resp 20 09/28/19 05:02 BP 102/63 09/28/19 05:02 Pulse Ox 97 09/26/19 09:00 Intake & Output 09/27/19 09/27/19 09/28/19 11:59 23:59 11:59 Intake Total 1570 1250 300 Balance 1570 1250 300 Weight 228 lb Intake: IV 750 800 Lactated Ringers Solution 750 800 1,000 ml @ 75 mls/hr IV ASDIR JOSEFINA Rx#:[id number] IVPB 200 50 50 Oral 400 250 Oral Supplement 620 Other: Voiding Method Toilet Toilet # Unmeasured Voids Void 2 1 Bowel Movement No No Height 5 ft Body Mass Index (BMI) 44.5 CBC, BMP 09/27/19 07:29 09/27/19 07:29 PE: A&Ox3, NAD Unlabored resp on RA Incisions, clean, dry and open with no active d/c, surrounding tissue intact with no tracking erythema. small perirectal area with palpable nodule-TTP adjacent to incisions, overlying skin intact with no sinus or erythema. Problem List - Problems (1) Britni-rectal abscess Assessment/Plan: POD #3 I&D, patient doing well, with new area of concern of unclear etiology. -Continue SITZ baths -bowel regimen -hydrate -OOB -encourage IS -will continue to observe. Evaluation and plan discussed with Dr Vasquez. Code(s): K61.1 - RECTAL ABSCESS (2) S/P hemorrhoidectomy Code(s): Z98.890 - OTHER SPECIFIED POSTPROCEDURAL STATES; Z87.19 - PERSONAL HISTORY OF OTHER DISEASES OF THE DIGESTIVE SYSTEM
[2019-09-28] MEDS ORDERED: cefTRIAXone SODIUM 1 GM VIAL ONE (09:42)
[2019-09-28] MEDS ORDERED: PT OWN MED DRAWER 7, Y5N ONE ×2 (09:42→21:35)
[2019-09-28] MEDS ORDERED: DEXTROSE 5%-WATER - 50 ML IVPB ONE (09:43)
--- NOTE | 2019-09-28 10:10 | PN ---
Progress Note (short form) - Note Progress Note: Attending Surgeon POD #4 Feeling better but now c/o s new area of tenderness and a new "lump" near her rectum. She is doing sitz baths. VSS AF rectal- Wound open and w/o drainage; tissue is pink and granulating and skin is normal; there is an area of soft tissue swelling in the left lateral perianal/ perirectal area; it is also ttp; oberlying skin is normal w/r/t/t/t and color. IMP: stable post op; new area of concern for post op complication. PLAN:Continue sitz baths and monitor area; may be area of thrombosis s/p hemorrhoidectomy vs. other; will continue to observe. Felipe Vasquez MD FACS
[2019-09-28] MEDS: SENNOSIDES 8.6MG TABLET (FP) PO SCH ×2 (10:23→21:39)
[2019-09-28] MEDS: LACTOBACILLUS ACIDOPHILUS 1 TABLET PO SCH (10:23)
[2019-09-28] MEDS: CEFTRIAXONE 1 GM in DEXTROSE 5%-WATER - 50 ML IVPB SCH (10:23)
[2019-09-28] MEDS: PSYLLIUM 5.85 GM PACKET PO SCH ×2 (10:25→21:39)
--- NOTE | 2019-09-28 14:20 | PN ---
Teaching Attending Note Name of Resident: Mine Grider ATTENDING PHYSICIAN STATEMENT I saw and evaluated the patient. I reviewed the resident's note and discussed the case with the resident. I agree with the resident's findings and plan as documented. SUBJECTIVE: Improving buttock pain s/p I and D. Reports new area of 'Lump". Appetite improving. No nausea/vomiting. No abdominal pain. BMs successful. OBJECTIVE: Afebrile, Hemodynamically Stable. Last Vital Signs Temp Pulse Resp BP Pulse Ox 98.2 F 80 17 126/67 97 09/28/19 09:00 09/28/19 09:00 09/28/19 09:00 09/28/19 09:00 09/26/19 09:00 Heart - S1, S2, RRR Lungs - clear to auscultation Abdomen - Soft, non-tender. Bowel Sounds normal. Extremities - no edema, no calf tenderness. Cori-rectal abscess packed s/p I and D with second draining sinus posterior to I and D site. No surrounding erythema. New area of induration, no clear abscess or drainage. Current Medications Generic Name Dose Route Start Last Admin Trade Name Freq PRN Reason Stop Dose Admin Docusate Sodium 200 mg 09/25/19 10:00 09/28/19 10:23 Colace - PO 200 mg DAILY JOSEFINA Administration Docusate Sodium 100 mg 09/24/19 22:00 09/28/19 06:02 Colace - PO Not Given TID JOSEFINA Heparin Sodium (Porcine) 5,000 unit 09/25/19 22:00 09/28/19 06:02 Heparin - SQ 5,000 unit TID JOSEFINA Administration Hydrochlorothiazide 25 mg 09/24/19 22:00 09/27/19 21:36 Hctz - PO 25 mg HS JOSEFINA Administration Ceftriaxone Sodium 1 gm/ 50 mls @ 200 mls/hr 09/25/19 14:45 09/28/19 10:23 Dextrose IVPB 200 mls/hr DAILY JOSEFINA Administration Protocol Clindamycin Phosphate 600 mg in 50 mls @ 100 mls/hr 09/25/19 18:00 09/28/19 10:23 Cleocin 600 Mg Premix Ivpb - IVPB 100 mls/hr Q8H-IV JOSEFINA Administration Protocol Lactobacillus Acidophilus 1 tab 09/25/19 15:00 09/28/19 10:23 Bacid - PO 1 tab DAILY JOSEFINA Administration Metoprolol Tartrate 25 mg 09/24/19 22:00 09/27/19 21:36 Lopressor - PO 25 mg HS JOSEFINA Administration Polyethylene Glycol 17 gm 09/24/19 18:44 09/25/19 09:35 Miralax (For Daily Use) - PO 17 grams DAILY PRN Administration CONSTIPATION Psyllium Hydrophilic Mucilloid 5.85 gm 09/24/19 22:00 09/28/19 10:25 Metamucil (Sugar-Free) - PO 5.85 gm BID JOSEFINA Administration Senna 1 tab 09/24/19 22:00 09/28/19 10:23 Senna - PO 1 tab BID JOSEFINA Administration Home Medications Medication Instructions Recorded Hydrochlorothiazide [Hctz -] 25 mg PO HS 09/02/19 Metoprolol Tartrate 25 mg PO HS 09/02/19 ASSESSMENT/PLAN 52 year old female with history of HTN, Hepatosplenomegaly, Pulmonary Sarcoid, presents with 3 day history of rectal pain s/p Hemorrhoidectomy 09/18. CT pelvis - subcutaneous abscess posterior to the rectum just to the right of the midline. collection measures approximately 2.2x1.9x3.3cm 1. Acute cori-rectal abscess POD 4 s/p EUA/I&D by Surgery No fistula/bowel communication on CT Afebrile, hemodynamically Stable. Initially placed on Zosyn/Vanco, de-escalated to Rocephin/Clinda by ID Wound/Surgical Cx pos for Ecoli/Strep agalaciae/alpha hemolytic Strep/anaerobic GNB. Further Abx titration as per ID. Wound Care, bowel regimen, Sitz bath BID. Further management/recommendations as per Surgery. Abx recommendations as per ID. 2. HTN - continue Metoprolol, HCTZ 3. Pulmonary Sarcoid - not on treatment. Pulmonary follow up as out-patient. DVT Px - Heparin SQ
[2019-09-28] MEDS ORDERED: ACETAMINOPHEN 325 MG TABLET (FP) PO PRN (15:47)
--- NOTE | 2019-09-28 15:49 | PN ---
Physical Exam: SUBJECTIVE: Patient seen and examined. No acute events overnight. Patient now able to have bowel movements and urinate but still has some pain. Also complains of a new area of induration on left buttocks. Denies chest pain, abd pain, fever, chills, nausea. OBJECTIVE: Vital Signs Period Temp Pulse Resp BP Sys/Ward Pulse Ox Last 24 Hr 97.9 F-98.6 F 73-83 17-20 100-126/49-67 98 GENERAL: Awake, alert, and fully oriented, mild distress secondary to pain HEAD: Normal with no signs of trauma. EYES: EOMI, no scleral icterus EARS, NOSE, THROAT: MMM NECK: Normal range of motion, supple without lymphadenopathy, JVD, or masses. LUNGS: Breath sounds equal, clear to auscultation bilaterally. No wheezes, and no crackles. No accessory muscle use. HEART: RRR, no murmur noted ABDOMEN: obese, Soft, nontender, not distended RECTAL: open incision site over right buttocks closer to anus, clean, dry, no active bleeding or drainage, no surrounding erythema. On the right buttocks in the perianal area there is a new area of induration that is tender to palpation without overlying erythema or active bleeding/drainage MUSCULOSKELETAL: No bony deformities or tenderness. No CVA tenderness. EXTREMITIES: 2+ pulses, warm, well-perfused. No calf tenderness. No peripheral edema. NEUROLOGICAL: Normal speech. gait not observed PSYCHIATRIC: Cooperative. Good eye contact. Appropriate mood and affect. SKIN: Warm, dry, normal turgor Active Medications Generic Name Dose Route Start Last Admin Trade Name Freq PRN Reason Stop Dose Admin Docusate Sodium 200 mg 09/25/19 10:00 09/28/19 10:23 Colace - PO 200 mg DAILY JOSEFINA Administration Docusate Sodium 100 mg 09/24/19 22:00 09/28/19 15:01 Colace - PO 100 mg TID JOSEFINA Administration Heparin Sodium (Porcine) 5,000 unit 09/25/19 22:00 09/28/19 15:01 Heparin - SQ 5,000 unit TID JOSEFINA Administration Hydrochlorothiazide 25 mg 09/24/19 22:00 09/27/19 21:36 Hctz - PO 25 mg HS JOSEFINA Administration Ceftriaxone Sodium 1 gm/ 50 mls @ 200 mls/hr 09/25/19 14:45 09/28/19 10:23 Dextrose IVPB 200 mls/hr DAILY JOSEFINA Administration Protocol Lactobacillus Acidophilus 1 tab 09/25/19 15:00 09/28/19 10:23 Bacid - PO 1 tab DAILY JOSEFINA Administration Metoprolol Tartrate 25 mg 09/24/19 22:00 09/27/19 21:36 Lopressor - PO 25 mg HS JOSEFINA Administration Polyethylene Glycol 17 gm 09/24/19 18:44 09/25/19 09:35 Miralax (For Daily Use) - PO 17 grams DAILY PRN Administration CONSTIPATION Psyllium Hydrophilic Mucilloid 5.85 gm 09/24/19 22:00 09/28/19 10:25 Metamucil (Sugar-Free) - PO 5.85 gm BID JOSEFINA Administration Senna 1 tab 09/24/19 22:00 09/28/19 10:23 Senna - PO 1 tab BID JOSEFINA Administration ASSESSMENT/PLAN: 52 y/o/f with PMHx of hepatosplenomegaly, HTN, pulmonary sarcoidosis (no active medication) who presents to the ED due to rectal pain since her hemoroidectomy on 09/[address] Davenport. #Britni-rectal abscess - likely 2/2 to hemorrhoidectomy on 09/18 - continue Ceftriaxone IV QD - ID consulted (Dr. Villegas) - Wound culture growing: E Coli, Group B strep, alpha hemolytic strep, Porphyromonos Assacharolyticus - surgery consulted (Dr. Vasquez) - POD#4 I&D - no leukocytosis, afebrile. monitor - pain control as needed - aggressive bowel regimen to soften stool - Colace, Senna, Miralax ordered - Blood cultures negative to date #HTN - Continue home Metoprolol 25mg HS, HCTZ 25mg HS #Pulmonary sarcoidosis - no active medications - pulmonary follow up outpatient #Prophylaxis - SCDs - Heparin #FEN - IVF discontinued - sodium controlled diet - monitor and replete lytes as needed #Disposition - d/c when cleared by surgery Visit type - Emergency Visit Emergency Visit: Yes ED Registration Date: 09/24/19 Care time: The patient presented to the Emergency Department on the above date and was hospitalized for further evaluation of their emergent condition. - New Patient This patient is new to me today: No - Critical Care Critical Care patient: No ATTENDING PHYSICIAN STATEMENT I saw and evaluated the patient. I reviewed the resident's note and discussed the case with the resident. I agree with the resident's findings and plan as documented. SUBJECTIVE: OBJECTIVE: ASSESSMENT AND PLAN:
[2019-09-28] MEDS: HYDROCORTISONE 2.5% TOPICAL CREAM 30 GM TUBE PR SCH ×2 (21:38→22:02)
[2019-09-28] MEDS: METOPROLOL TARTRATE 25 MG TABLET (FP) PO SCH (21:39)
[2019-09-28] MEDS: HYDROCHLOROTHIAZIDE 25 MG TABLET (FP) PO SCH (21:39)
[2019-09-28] MEDS: metroNIDAZOLE 250 MG TABLET PO SCH (21:40)
[2019-09-29] MEDS: DOCUSATE SODIUM 100 MG CAPSULE (FP) PO SCH ×2 (06:16→09:56)
[2019-09-29] MEDS: HEPARIN NA (PORCINE) 5,000 UNITS/ML 1ML VIAL SQ SCH (06:16)
[2019-09-29] MEDS: HYDROCORTISONE 2.5% TOPICAL CREAM 30 GM TUBE PR SCH ×2 (06:17→07:39)
[2019-09-29] MEDS ORDERED: DEXTROSE 5%-WATER - 50 ML IVPB ONE (09:36)
[2019-09-29] MEDS ORDERED: cefTRIAXone SODIUM 1 GM VIAL ONE (09:36)
[2019-09-29] MEDS ORDERED: PT OWN MED DRAWER 7, Y5N ONE ×2 (09:36→10:43)
--- NOTE | 2019-09-29 09:51 | PN ---
Progress Note (short form) - Note Progress Note: Attending Surgeon POD#5 Feeling better; sitting in chair w/o difficulty. VSS AF wound-open and w/minimal drainage; new area of tenderness less so and improved since yesterday. IMP: improving PLAN: Stable for discharge on oral antibiotics per ID and local wound care w/ Sitz baths and office f/u next week with myself and/or Dr. Abebe Davenport. Felipe Vasquez MD FACS
[2019-09-29] MEDS: PSYLLIUM 5.85 GM PACKET PO SCH (09:55)
[2019-09-29] MEDS: CEFTRIAXONE 1 GM in DEXTROSE 5%-WATER - 50 ML IVPB SCH (09:55)
[2019-09-29] MEDS: SENNOSIDES 8.6MG TABLET (FP) PO SCH (09:56)
[2019-09-29] MEDS: LACTOBACILLUS ACIDOPHILUS 1 TABLET PO SCH (09:57)
[2019-09-29] MEDS: metroNIDAZOLE 250 MG TABLET PO SCH (09:57)
--- NOTE | 2019-09-29 10:43 | OP ---
DATE OF OPERATION: 09/24/2019 PREOPERATIVE DIAGNOSIS: Post hemorrhoidectomy abscess. POSTOPERATIVE DIAGNOSIS: Post hemorrhoidectomy abscess. PROCEDURE: Examination under anesthesia and incision and drainage of post hemorrhoidectomy abscess. PROCEDURE: Incision and drainage of inferior left buttock abscess. SURGEON: Felipe Vasquez MD ANESTHESIA: Regional with sedation. OPERATIVE FINDINGS: There was a subcutaneous abscess posterior and to the right of the midline of the anus. Postop hemorrhoidectomy changes were present as well. The vaginal wall and the rectum were intact, and the rest of the findings were unremarkable. DESCRIPTION OF PROCEDURE: The patient was placed in the dorsal lithotomy position after the placement of regional anesthesia. The perineum, buttocks, and vulva were prepped with Betadine and draped in sterile fashion. A time-out was taken and then exam under anesthesia carried out with the previously noted findings observed. An 18-gauge needle with a syringe was placed into the area in question, and purulent material was aspirated and sent for culture and sensitivity. Using a scalpel, this area was opened, and more purulent drainage was encountered. All loculations were broken up using blunt dissection. The abscess cavity was irrigated with saline and peroxide. Hemostasis was secured with electrocautery and then the abscess cavity further irrigated with normal saline. Hemostasis was verified and then a 1/2- inch Iraan drain and 1/2-inch packing were placed in the abscess cavity. Dry sterile dressings were placed and the procedure terminated at this point and the patient transferred to the post anesthesia care unit in stable condition awake and alert. ESTIMATED BLOOD LOSS: 5 mL. REPLACEMENTS: Crystalloid. DRAINS: One Iraan and iodoform packing. SPECIMENS: Purulent drainage to microbiology for culture and sensitivity. I, Felipe Vasquez, was physically present in the operating room from the time the patient was placed on the operating room table until she was transferred to the post anesthesia care unit in [place]. MD JUDSON Harris/[id number] MTDD
--- NOTE | 2019-09-29 15:18 | DS ---
Physical Exam: SUBJECTIVE: Patient seen and examined. States that she is feeling better. No acute events overnight. Feels comfortable going home. OBJECTIVE: Vital Signs Period Temp Pulse Resp BP Sys/Ward Pulse Ox Last 24 Hr 98 F-98.8 F 67-86 19-20 107-113/64-72 98 PHYSICAL EXAM GENERAL: Awake, alert, and fully oriented, mild distress secondary to pain HEAD: Normal with no signs of trauma. EYES: EOMI, no scleral icterus EARS, NOSE, THROAT: MMM NECK: Normal range of motion, supple without lymphadenopathy, JVD, or masses. LUNGS: Breath sounds equal, clear to auscultation bilaterally. No wheezes, and no crackles. No accessory muscle use. HEART: RRR, no murmur noted ABDOMEN: obese, Soft, nontender, not distended RECTAL: open incision site over right buttocks close to anus, clean, dry, no active bleeding or drainage, no surrounding erythema. On the right buttocks in the perianal area there is small area of induration that is mildly tender to palpation without overlying erythema or active bleeding/drainage MUSCULOSKELETAL: No bony deformities or tenderness. No CVA tenderness. EXTREMITIES: 2+ pulses, warm, well-perfused. No calf tenderness. No peripheral edema. NEUROLOGICAL: Normal speech. gait not observed PSYCHIATRIC: Cooperative. Good eye contact. Appropriate mood and affect. SKIN: Warm, dry, normal turgor LABS HOSPITAL COURSE: Date of Admission:09/24/19 Date of Discharge: 09/29/19 52 y/o/f with PMHx of hepatosplenomegaly, HTN, pulmonary sarcoidosis (no active medication) who presents to the ED due to rectal pain since her hemoroidectomy on 09/[address] of the pelvis showed a subcutaneous abscess posterior to the rectum to the right of midline. Patient was taken to OR with Dr. Vasquez for I&D and was closely followed by surgery. Patient was continued on abx with Rocephin and Clindamycin. Wound cultures grew E Coli, Group B strep, alpha hemolytic strep, Porphyromonos Assacharolyticus. Patient discharged on Ceftin 500mg BID and Flagyl 500mg BID for one week. Patient was given follow up instructions by surgical team. Patient to also continue stool softeners when home and to follow up with Dr. Davenport or Dr. Vasquez. Patient also recommended to follow up with Pulmonology regarding past medical history of pulmonary sarcoidosis. Patient stable for discharge home with follow up instructions. Minutes to complete discharge: 36 Discharge Summary Problems reviewed: Yes Reason For Visit: SEPSIS Condition: Improved - Instructions Diet, Activity, Other Instructions: Christina Rectal abscess I&D Discharge Instructions Activity * We recommend walking daily, increase the amount you walk each day. Walking boosts blood flow and helps prevent pneumonia and constipation * You may drive when you are no longer taking pain medicine and are able to sit comfortably for a long period of time. * Most people are able to return to work within 1 to 2 weeks after surgery. * Shower or take baths as usual. Pat your anal area dry with a towel when you are done. Diet * You can eat your normal diet. * Drink plenty of fluids (unless you have a medical condition prohibiting you from doing so) * Include high-fiber foods, such as fruits, vegetables, beans, and whole grains , in your diet each day. * You may notice that your bowel movements are not regular right after your surgery. This is common. Try to avoid constipation and straining with bowel movements. We recommend taking a fiber supplement and/or stool softener daily. Medicines * Take any narcotic pain medication as prescribed. Do not drink, drive, or operate heavy machinery while taking narcotic pain medications. Incision care * We recommend daily sitz baths for comfort. Sit in 8 to 10 centimetres of warm water (sitz bath) for 15 to 20 minutes. Then pat the area dry. Do this as long as you have pain in your anal area. * After a bowel movement, use a baby wipe or take a shower or sitz bath to gently clean the anal area. Other instructions * Apply ice several times a day for 10 to 20 minutes at a time. Put a thin cloth between your skin and the ice. * Support your feet with a small step stool when you sit on the toilet. This helps flex your hips and places your pelvis in a squatting position. This can make bowel movements easier after surgery. * Try lying on your stomach with a pillow under your hips to decrease swelling. Follow up next week w/ith Dr. Vasquez and/or Dr. Juan A Davenport. You presented to the hospital due to rectal pain and were diagnosed with a rectal abscess. You were seen by Dr. Vasquez, Surgery and had an incision and drainage completed. You were also started on antibiotics with improvement and are being sent home with continuing antibiotics. Medication Changes: 1. START Ceftin 500mg twice daily for 7 days for continuing antibiotic coverage 2. CONTINUE Flagyl 500mg twice daily for 6 more days for continuing antibiotic coverage. 3. You are being prescribed: Colace 100mg three times daily Senna one tab twice daily Miralax once daily - You may take these medications as needed to help soften your stool. 4. START Bacid one tablet daily, this is a probiotic medication to help fight against upset stomach that may be caused by the antibiotics you will be on. Follow up with the following physicians: 1. Please follow up with your primary care provider within one week of discharge for further management of your medical conditions. You mentioned that you would like to change your primary care provider so a referral has been provided for you for the [facility]. 2. Please follow up with Dr. Davenport or Dr. Vasquez, within 1 week, for follow up regarding your surgery and rectal abscess. 3. Recommended to follow up with Dr. Flores, Pulmonology, within 1-2 weeks of discharge regarding your medical history of pulmonary sarcoidosis. Activity and Diet 1. Please monitor your diet as you need to consume a diet with less salt and drink plenty of fluids. Continue all your other medications as prescribed Please return to the ER if you have any signs or symptoms of chest pain, shortness of breath, uncontrollable fever, chills, nausea, vomiting, numbness, tingling, or weakness in any part of your body, changes in vision, or slurred speech. Please return to the ER if symptoms persist, worsen, or new symptoms arise. Referrals: Felipe Vasquez MD [Staff Physician] - Juan A Davenport MD [Staff Physician] - Gayatri Bright MD [Primary Care Provider] - Oren Flores MD [Staff Physician] - Disposition: HOME - Home Medications Comprehensive Discharge Medication List: Ambulatory Orders Hydrochlorothiazide [Hctz -] 25 mg PO HS 09/02/19 Metoprolol Tartrate 25 mg PO HS 09/02/19 Cefuroxime Axetil [Ceftin -] 500 mg PO Q12H #14 tablet 09/29/19 Docusate Sodium [Colace -] 100 mg PO TID 20 Days #60 capsule 09/29/19 Lactobacillus Acidophilus [Bacid -] 1 tab PO DAILY 20 Days #20 tab 09/29/19 Polyethylene Glycol 3350 [Miralax 119 gm Btl -] 17 gm PO DAILY PRN #1 bottle 12/13 Sennosides [Senna -] 1 tab PO BID 20 Days #20 tablet 09/29/19 metroNIDAZOLE [Flagyl -] 500 mg PO BID 6 Days #24 tablet 09/29/19 This patient is new to me today: No Emergency Visit: Yes ED Registration Date: 09/24/19 Care time: The patient presented to the Emergency Department on the above date and was hospitalized for further evaluation of their emergent condition. Critical Care patient: No - Discharge Referral Referred to [facility] Med P.C.: No ATTENDING PHYSICIAN STATEMENT I saw and evaluated the patient. I reviewed the resident's note and discussed the case with the resident. I agree with the resident's findings and plan as documented. SUBJECTIVE: OBJECTIVE: ASSESSMENT AND PLAN:
[2019-09-29 16:41] VITALS: BP 104/65; PULSE 72; TEMP 98.2
== END 2019-09-29 13:53 | disposition home or self-care (01) | DRG 349 ==
LOC: JER 11:41 → JERBED 16:09 → J6S 20:32
PROVIDERS: ATTEND Internal Medicine
PROC: 0D9Q00Z Drainage of Anus with Drainage Device, Open Approach (ICD-10-PCS; principal; 2019-09-24 17:40)
DX: K61.0 Anal abscess (principal); I10 Essential (primary) hypertension; D86.0 Sarcoidosis of lung; R73.03 Prediabetes; B95.1 Streptococcus, group B, as the cause of diseases classified elsewhere; R16.0 Hepatomegaly, not elsewhere classified
CPT/HCPCS: 36415; 72193-TC; 80053; 83605; 83735; 85025; 85027; 85610; 85730; 86850; 86900; 86901; 87040; 87070; 87076; 87186; 87205; 93005; 93010; 94760; 99282-25; J1644; Q9967

== ENCOUNTER 2019-10-18 11:22 | Emergency (ER) | payer BC ==
[2019-10-18 11:30] VITALS: BMI 41.0
--- NOTE | 2019-10-18 12:37 | PDOC ---
History of Present Illness - General Chief Complaint: Revisit,Wound Recheck Stated Complaint: FEVER - History of Present Illness Initial Comments: 10/18/19 12:57 54 yo F with PMHx of hemorrhoids s/p hemorrhoidectomy 09/18/19 and perirectal abcess drainage 09/24/19, HTN, pulmonary sarcoidosis (no active medication) who presents to the ED due to multiple episodes of high fevers ( 102.3-103.1F) for the past couple of days. Pt endorsed that the fevers are associated with nausea , significant diaphoresis and chills. She denies any rectal pain, purulent drainage from surgical site, change in BM, abdominal pain, SOB, chest pain, or urinary symptoms. Pt recently completed a course of antibiotics without missed dose. On further questioning, she explains that a year and a half ago she had a similar episode of high fever of unknown etiology despite extensive workup at [facility]. No other immunologic disease other than her Sarcoidosis. She was seen by Heme/Onc as well but also with unclear findings. Of note, mom with Cancer actively receiving chemo. PMH and PSH: as above Social Hx: none Family Hx: mom with Cancer actively receiving chemo. ROS: Constitutional: fever, chills HEENT: no throat pain, no dysphagia Cardiovascular: no chest pain, no palpitations Respiratory: no cough, no shortness of breath Gastrointestinal: Nausea Genitourinary: no dysuria no urgency Musculoskeletal: no myalgia, no arthralgia Skin: healing abscess wound right buttock Neurologic: mild headache, no weakness Psych: no agitation, no anxiety PE: VS: 100.3F rectally, normotensive but tachycardic at 101 GEN: mildly diaphoretic but NAD HEENT: PERRLA, moist membrane, clear conjunctiva NECK: no JVD CHEST: vesicular breath sounds b/l HEART: RRR no murmur, rubs or gallop ABDOMEN: + BS, NT but obese abdomen Extremities: 2+ pulses, no edema SKIN: healing abscess wound right buttock MSK: normal ROM in all extremities PSYCH: normal affect Rectal: flat hemorrhoid, no visible blood or purulent drainage, no significant erythema or tenderness around wound. 10/18/19 13:03 Assessment: possible abscess recollection vs sarcoidosis flare vs FUO 10/18/19 13:15 CBC, CMP, UA, CXR and if significant leukocytosis with rescan for asbcess as pt last CT was 10/16/2019 10/18/19 13:24 CBC WBC 5.1 K/mm3 (4.0-10.0) 10/18/19 13:20 RBC 4.35 M/mm3 (3.60-5.2) 10/18/19 13:20 Hgb 12.2 GM/dL (10.7-15.3) 10/18/19 13:20 Hct 35.7 % (32.4-45.2) 10/18/19 13:20 MCV 82.1 fl (80-96) 10/18/19 13:20 MCH 27.9 pg (25.7-33.7) 10/18/19 13:20 MCHC 34.0 g/dl (32.0-36.0) 10/18/19 13:20 RDW 15.2 % (11.6-15.6) 10/18/19 13:20 Plt Count 163 K/MM3 (134-434) 10/18/19 13:20 MPV 9.2 fl (7.5-11.1) 10/18/19 13:20 Absolute Neuts (auto) 3.7 K/mm3 (1.5-8.0) 10/18/19 13:20 Neutrophils % 72.8 % (42.8-82.8) 10/18/19 13:20 Lymphocytes % 12.6 % (8-40) D 10/18/19 13:20 Monocytes % 11.6 % (3.8-10.2) H 10/18/19 13:20 Eosinophils % 2.5 % (0-4.5) 10/18/19 13:20 Basophils % 0.5 % (0-2.0) 10/18/19 13:20 Nucleated RBC % 0 % (0-0) 10/18/19 13:20 just mild monocytosis CXR clear without acute pathology 10/18/19 14:17 CMP and UA still pending 10/18/19 15:12 CMP Sodium 136 mmol/L (136-145) 10/18/19 12:55 Potassium 3.7 mmol/L (3.5-5.1) 10/18/19 12:55 Chloride 102 mmol/L (98-107) 10/18/19 12:55 Carbon Dioxide 28 mmol/L (21-32) 10/18/19 12:55 Anion Gap 6 MMOL/L (8-16) L 10/18/19 12:55 BUN 9.6 mg/dL (7-18) 10/18/19 12:55 Creatinine 0.8 mg/dL (0.55-1.3) 10/18/19 12:55 Est GFR (CKD-EPI)AfAm 96.87 10/18/19 12:55 Est GFR (CKD-EPI)NonAf 83.58 10/18/19 12:55 Random Glucose 98 mg/dL (74-106) 10/18/19 12:55 Calcium 9.1 mg/dL (8.5-10.1) 10/18/19 12:55 Total Bilirubin 0.7 mg/dL (0.2-1) 10/18/19 12:55 AST 34 U/L (15-37) 10/18/19 12:55 ALT 22 U/L (13-61) 10/18/19 12:55 Alkaline Phosphatase 71 U/L (45-117) 10/18/19 12:55 Total Protein 7.9 g/dl (6.4-8.2) 10/18/19 12:55 Albumin 3.2 g/dl (3.4-5.0) L 10/18/19 12:55 unremarkable. UA also negative for infection 10/18/19 15:15 in light of practically unremarkable labs and imaging. will attempt to reach out to Servando pt with outpatient follow up? 10/18/19 16:39 after ID physician discussion, will send for Blood cultures, ESR, CRP and discharge patient with close follow up with Demetrio valdez 10/18/19 17:22 Discussed plan with Pt and pt agreed and to follow up with the PCP clinic within one week. Referred patient to Resident clinic and pt is to receive call tomorrow for appointment. Past History - Past Medical History Allergies/Adverse Reactions: Allergies Allergy/AdvReac Type Severity Reaction Status Date / Time No Known Allergies Allergy Verified 10/18/19 11:30 Home Medications: Ambulatory Orders Hydrochlorothiazide [Hctz -] 25 mg PO HS 09/02/19 Metoprolol Tartrate 25 mg PO HS 09/02/19 Amoxicillin 875 mg PO BID 02/23/20 Meloxicam 15 mg PO DAILY 10/18/19 metroNIDAZOLE [Flagyl -] 250 mg PO TID 10/18/19 Anemia: No Asthma: No Cancer: No Cardiac Disorders: No (cardiac cath-negative) CVA: No COPD: No CHF: No Dementia: No Diabetes: Yes (borderline) GI Disorders: No Disorders: No HTN: Yes Hypercholesterolemia: No Liver Disease: Yes (liver enlarged) Seizures: No Thyroid Disease: No - Psycho Social/Smoking Cessation Hx Smoking Status: No Smoking History: Never smoked Have you smoked in the past 12 months: No Number of Cigarettes Smoked Daily: 0 Hx Alcohol Use: No Drug/Substance Use Hx: No Substance Use Type: None Hx Substance Use Treatment: No *Physical Exam - Vital Signs Last Vital Signs Temp Pulse Resp BP Pulse Ox 98 F 94 H 18 130/87 99 10/18/19 11:27 10/18/19 11:27 10/18/19 11:27 10/18/19 11:27 10/18/19 11:27 ED Treatment Course - LABORATORY CBC & Chemistry Diagram: 10/18/19 13:10/18/19 12:55 Discharge - Discharge Information Problems reviewed: Yes Clinical Impression/Diagnosis: Fever and chills Condition: Improved Disposition: HOME - Admission No - Follow up/Referral Referrals: Bryce Rodriguez MD [Staff Physician] - - Patient Discharge Instructions Additional Instructions: You came into the ED because of fever and chills. We tested your blood, urine and perform an Xray of your chest and all results were negative. We spoke with the Infection Doctor who recommended to culture your blood, and to send chronic inflammation markers such as ESR and CRP. If these results become abnormal, we will call you and have you return to the Emergency room. You will receive a call from the [facility], please schedule an appointment within a day or to. For your fevers, please alternate between tylenol and ibuprofen. Take tylenol; after 3 hours take ibuprofen, then after another 3 hours take tylenol. This is to prevent toxicity from either medication. If you begin to experience altered mental status, rectal pain, chest pain, SOB, bleeding, abdominal pain, please return to the emergency room immediately. - Post Discharge Activity
--- NOTE | 2019-10-18 13:01 | PDOC ---
Attending Attestation - Resident Resident Name: Gertrudis Eller - ED Attending Attestation I have performed the following: I have examined & evaluated the patient, The case was reviewed & discussed with the resident, I agree w/resident's findings & plan, Exceptions are as noted - HPI HPI: 10/18/19 13:00 54 yo female p/w rigors and report of intermittent fevers HPI she had a perirectal abscess drained in OR on 09/18/19. Today she denies any rectal pain - Physicial Exam PE: 10/18/19 13:01 Alert and concersant 54 yo female w fevers head ncat neck supple lungs cta b/l cvs [id number] skin warm and dry abd protuberant but nontender Rectal exam small superficial opening 4mm on rt buttocks near crease, no erythema ,no drainage, nontender neuro [id number],no gross focal neuro deficits - Medical Decision Making 10/18/19 13:04 Rectal temp 100.3 but she took tylenol about 5 minutes before presenting to ED plan sepsis w/u Reviewing old charts, she had an extensive w/u for fevers of unknown origin in the past.He states that she was followed by Dr. Cornelius Montes De Oca who did a work-up for these fevers and apparently no specific cause was ever found. 10/18/19 13:15 Past medical history significant for anti-smooth muscle antibodies, pulmonary sarcoidosis, hepatosplenomegaly, hypertension, prediabetes Past surgical history September 18 Dr. Juan A aDvenport did hemorrhoidectomy September 24 Dr. Vasquez did I&D for a right perirectal abscess status post hemorrhoidectomy 10/18/19 15:34 CBC is unremarkable as are her chemistries Case discussed with Dr. Villegas And she would like blood cultures, sed rate sent to the lab prior to discharge 10/18/19 16:02 pt will be discharged home with outpt follow up 10/18/19 16:41
[2019-10-18 13:35] LABS: BASO % 0.5 % (0-2.0); EOS % 2.5 % (0-4.5); HEMATOCRIT 35.7 % (32.4-45.2); HEMOGLOBIN 12.2 GM/dL (10.7-15.3); LYMPH % 12.6 % (8-40); MCH 27.9 pg (25.7-33.7); MEAN CELL VOLUME 82.1 fl (80-96); MEAN PLT VOLUME 9.2 fl (7.5-11.1); MONO % 11.6 % (3.8-10.2); NEUT % 72.8 % (42.8-82.8); PLATELET COUNT 163 K/MM3 (134-434); RBC 4.35 M/mm3 (3.60-5.2); RDW 15.2 % (11.6-15.6); WHITE BLOOD COUNT 5.1 K/mm3 (4.0-10.0)
[2019-10-18 14:14] LABS: ALBUMIN 3.2 g/dl (3.4-5.0); BILIRUBIN,TOTAL 0.7 mg/dL (0.2-1); BLOOD UREA NITROGEN 9.6 mg/dL (7-18); CALCIUM 9.1 mg/dL (8.5-10.1); CREATININE 0.8 mg/dL (0.55-1.3); POTASSIUM 3.7 mmol/L (3.5-5.1); TOT PROT 7.9 g/dl (6.4-8.2)
[2019-10-18 14:57] LABS: EPI CELLS 3.8 /HPF (0-5/HPF); HYALINE CASTS 16 /lpf (0-8); URINE APPEARANCE CLEAR; URINE BACTERIA 2.6 /hpf (NEGATIVE); URINE BILIRUBIN NEGATIVE (NEGATIVE); URINE COLOR DK YELLOW; URINE GLUCOSE (UA) NEGATIVE (NEGATIVE); URINE KETONE TRACE (NEGATIVE); URINE LEUK ESTERASE TRACE (NEGATIVE); URINE NITRITE NEGATIVE (NEGATIVE); URINE PROTEIN TRACE (NEGATIVE); URINE RBC 6 /hpf (0-4); URINE UROBILINOGEN 0.2 mg/dL (0.2-1.0); URINE WBC 3 /hpf (0-5)
[2019-10-18 17:51] LABS: ERYTHROCYTE SEDIMENTATION RATE 83 mm/hr (0-30)
[2019-10-18 18:20] VITALS: BP 113/76; PULSE 82; TEMP 99
== END 2019-10-18 18:29 | disposition home or self-care (01) ==
LOC: JER 11:22
DX: R50.9 Fever, unspecified (principal); I10 Essential (primary) hypertension; D86.0 Sarcoidosis of lung; Z98.890 Other specified postprocedural states
CPT/HCPCS: 36415; 71046-TC-FY; 80053; 81003; 85025; 85651; 86140; 87040; 87086; 99284-25